=== PATIENT | female | born 1995 | race Caucasian/White ===

== ENCOUNTER 2017-01-31 15:43 | Emergency (ER) | payer OTHER ==
[2017-01-31 15:53] VITALS: BP 116/72; PULSE 112; TEMP 98.5; BMI 30.2
--- NOTE | 2017-01-31 17:50 | PDOC ---
History of Present Illness - General Chief Complaint: Abscess Boil Stated Complaint: ABSCESS ON BACK Time Seen by Provider: 01/31/17 17:01 History Source: Patient Exam Limitations: No Limitations - History of Present Illness Initial Comments: CHIEF COMPLAINT: 21 y/o afebrile female c/o painful abscess to back x 3 weeks. HISTORY OF PRESENT ILLNESS: The patient was seen at [facility] 2 weeks ago and was given Penicillin but states it is not helping. She admits to fever yesterday but none in the ER today. Vital signs on arrival are notable for pulse of 112. REVIEW OF SYSTEMS: GENERAL/CONSTITUTIONAL: Subjective fever. No chills. No weakness. No weight change. MUSCULOSKELETAL: No joint or muscle swelling or pain. No neck or back pain. SKIN: +painful abscess to low back. NEUROLOGIC: No headache, vertigo, loss of consciousness, or loss of sensation. PHYSICAL EXAM: GENERAL: The patient is awake, alert, and fully oriented, in no acute distress. EXTREMITIES: Normal range of motion, no edema. NEUROLOGICAL: Normal speech, normal gait. CN II-XII grossly intact. SKIN: 2cm in diameter, raised, erythematous abscess in middle of lower lumbar region that is non-fluctuant, indurated and very TTP. No streaking. Past History - Past Medical History Allergies/Adverse Reactions: Allergies Allergy/AdvReac Type Severity Reaction Status Date / Time No Known Allergies Allergy Verified 01/31/17 15:50 Home Medications: Ambulatory Orders Sulfamethoxazole/Trimethoprim [Bactrim Ds -] 1 tab PO BID #20 tablet 01/31/17 Asthma: Yes Kidney Stones: Yes - Reproductive History (#): 2 Para: 1 Therapeutic (s) & number: Yes Spontaneous : 0 - Immunization History TDAP Vaccination: Yes Immunization Up to Date: Yes - Psycho/Social/Smoking Cessation Hx Anxiety: No Suicidal Ideation: No Smoking Status: No Smoking History: Never smoked Have you smoked in the past 12 months: No Number of Cigarettes Smoked Daily: 0 Hx Alcohol Use: No Drug/Substance Use Hx: No Substance Use Type: None *Physical Exam - Vital Signs Last Vital Signs Temp Pulse Resp BP Pulse Ox 98.5 F 112 H 18 116/72 98 01/31/17 15:51 01/31/17 15:51 01/31/17 15:51 01/31/17 15:51 01/31/17 15:51 Medical Decision Making - Medical Decision Making A/P: 21 y/o female with an indurated lower back skin abscess. Instructed her to d/c PCN. Will send rx for bactrim. Instructed her to take as prescribed and apply hot compresses hourly. Instructed her to f/u with Dr. Yang if no improvement in 3 days for possible surgical consult. The patient verbalizes understanding of all instructions, has no further questions and is awaiting discharge. *DC/Admit/Observation/Transfer Diagnosis at time of Disposition: Abscess - Prescriptions Prescriptions: Sulfamethoxazole/Trimethoprim [Bactrim Ds -] 1 tab PO BID #20 tablet - Referrals Referrals: Alexander Yang MD [Primary Care Provider] - Call tomorrow - Patient Instructions Printed Discharge Instructions: DI for Skin Abscess Additional Instructions: Discharge Instructions: -Take antibiotics as prescribed; a prescription has been called out to the [facility] -Apply hot compresses hourly to the affected area -Follow up with Dr. Yang if symptoms do not improve for possible surgical referral.
== END 2017-01-31 18:17 | disposition home or self-care (01) ==
LOC: JERFT 15:43 → JER 15:43 → JERFT 18:17
DX: L02.212 Cutaneous abscess of back [any part, except buttock and flank] (principal)
CPT/HCPCS: 99281-25

== ENCOUNTER 2017-06-18 12:17 | Emergency (ER) | payer OTHER ==
[2017-06-18 12:34] VITALS: BP 110/57; PULSE 83; TEMP 98; BMI 30.2
--- NOTE | 2017-06-18 13:27 | PDOC ---
History of Present Illness - General Chief Complaint: Pain, Acute Stated Complaint: VAGINAL BLEEDING Time Seen by Provider: 06/18/17 12:48 - History of Present Illness Initial Comments: 06/18/17 13:45 Ms. Willett is a [id number] 21 yo F with a significant past medical history of seizures, asthma, and kidney stones who presents to the emergency department with RLQ pain for the last 2-3 weeks. She also reports her LMP was May 26 and that she had unprotected sex around this time. She has not started her period and is worried she may be . She further reports a few days of spotting, nausea, and some vomiting. The patient denies chest pain, shortness of breath, headache and dizziness. Denies fever, chills, and constipation. Denies dysuria, frequency, urgency and hematuria. Allergies: NKDA Past surgical history: None Social history: Social EtOH PMD - Dr. Alexander Yang Past History - Past Medical History Allergies/Adverse Reactions: Allergies Allergy/AdvReac Type Severity Reaction Status Date / Time No Known Allergies Allergy Verified 06/18/17 12:31 Home Medications: Ambulatory Orders Sulfamethoxazole/Trimethoprim [Bactrim Ds -] 1 tab PO BID #20 tablet 01/31/17 Asthma: Yes Kidney Stones: Yes Seizures: Yes - Reproductive History (#): 2 Para: 1 Therapeutic (s) & number: Yes Spontaneous : 0 - Immunization History TDAP Vaccination: Yes Immunization Up to Date: Yes - Psycho/Social/Smoking Cessation Hx Anxiety: No Suicidal Ideation: No Smoking Status: No Smoking History: Never smoked Have you smoked in the past 12 months: No Number of Cigarettes Smoked Daily: 0 Hx Alcohol Use: No Drug/Substance Use Hx: No Substance Use Type: None Review of Systems - Review of Systems Comments:: 06/18/17 13:46 GENERAL/CONSTITUTIONAL: No fever or chills. No weakness. HEAD, EYES, EARS, NOSE AND THROAT: No change in vision. No ear pain or discharge. No sore throat. CARDIOVASCULAR: No chest pain or shortness of breath RESPIRATORY: No cough, wheezing, or hemoptysis. GASTROINTESTINAL: +Recent nausea and vomiting in the morning for 3 days, 2-3 weeks of RLQ pain that is described as "pinching." No diarrhea or constipation. GENITOURINARY: +Recent vaginal spotting. No dysuria, frequency, or change in urination. MUSCULOSKELETAL: No joint or muscle swelling or pain. No neck or back pain. SKIN: No rash NEUROLOGIC: No headache, vertigo, loss of consciousness, or change in strength/ sensation. ENDOCRINE: No increased thirst. No abnormal weight change HEMATOLOGIC/LYMPHATIC: No anemia, easy bleeding, or history of blood clots. ALLERGIC/IMMUNOLOGIC: No hives or skin allergy. *Physical Exam - Vital Signs Last Vital Signs Temp Pulse Resp BP Pulse Ox 98 F 83 19 110/57 97 06/18/17 12:31 06/18/17 12:31 06/18/17 12:31 06/18/17 12:31 06/18/17 12:31 - Physical Exam Comments: 06/18/17 13:46 GENERAL: Awake, alert, and fully oriented, in no acute distress HEAD: No signs of trauma, normocephalic, atraumatic EYES: PERRLA, EOMI, sclera anicteric, conjunctiva clear ENT: Auricles normal inspection, hearing grossly normal, nares patent, oropharynx clear without exudates. Moist mucosa NECK: Normal ROM, supple, no lymphadenopathy, JVD, or masses LUNGS: No distress, speaks full sentences, clear to auscultation bilaterally HEART: Regular rate and rhythm, normal S1 and S2, no murmurs, rubs or gallops, peripheral pulses normal and equal bilaterally. ABDOMEN: +Mildly tender across lower abdomen. Soft, normoactive bowel sounds. No guarding, no rebound. No masses EXTREMITIES: Normal inspection, Normal range of motion, no edema. No clubbing or cyanosis. NEUROLOGICAL: Cranial nerves II through XII grossly intact. Normal speech, normal gait, no focal sensorimotor deficits SKIN: Warm, Dry, normal turgor, no rashes or lesions noted. 06/18/17 14:11 ED Treatment Course - LABORATORY CBC & Chemistry Diagram: 06/18/17 14:01 06/18/17 14:01 Medical Decision Making - Medical Decision Making 06/18/17 14:11 Ms. Willett presents worried she may be with a delayed period and recent unprotected sex. Patient reports taking a home test but that it was "blurry." Some concern for ectopic with possible and history of abdominal pain. On further questioning, patient confided to nurse that recent sex was an unknown friend of her girlfriend's that she was trying to get from. Unknown if the man had any STI's. Will test for GC/Chlamydia/HIV. 06/18/17 14:28 Upreg negative, patient now unconcerned about abdominal pain. Would like to leave once results of HIV testing are known. Will advise to f/u on GC/Chlamydia later this week and return if any increase in pain or fever. 06/18/17 14:41 Patient eloped. *DC/Admit/Observation/Transfer Diagnosis at time of Disposition: Abdominal pain Qualifiers: Abdominal location: lower abdomen, unspecified Qualified Code(s): R10.30 - Lower abdominal pain, unspecified - Discharge Dispostion Disposition: ELOPED - Attestations Physician Attestion: 06/18/17 14:42 I, Dr. Jairon Pyle, attest that this document has been prepared under my direction and personally reviewed by me in its entirety. I further attest, that it accurately reflects all work, treatment, procedures and medical decision -making performed by me.
[2017-06-18 14:06] LABS: BASOPHIL 0.5 % (0-2.0); EOSINOPHIL 0.9 % (0-4.5); MCHC 33.5 g/dl (32.0-36.0); MEAN CELL VOLUME 98.4 fl (80-96); MEAN PLT VOLUME 8.6 fl (7.5-11.1); NEUTROPHILS 64.2 % (42.8-82.8); PLATELET COUNT 226 K/MM3 (134-434); RDW 12.3 % (11.6-15.6); WHITE BLOOD COUNT 4.9 K/mm3 (4.0-10.0)
[2017-06-18 14:10] LABS: URINE APPEARANCE SLCLOUDY; URINE BILIRUBIN NEGATIVE (NEGATIVE); URINE BLOOD NEGATIVE (NEGATIVE); URINE COLOR LTYELLOW; URINE GLUCOSE (UA) NEGATIVE (NEGATIVE); URINE KETONE NEGATIVE (NEGATIVE); URINE LEUK ESTERASE TRACE (NEGATIVE); URINE NITRITE NEGATIVE (NEGATIVE); URINE PROTEIN NEGATIVE (NEGATIVE); URINE UROBILINOGEN NEGATIVE mg/dL (0.2-1.0)
[2017-06-18 14:15] LABS: URINE BACTERIA RARE /hpf (NONE SEEN); URINE MUCUS FEW; URINE RBC 1 /hpf (0-3); URINE WBC 4 /hpf (3-5)
--- NOTE | 2017-06-18 14:22 | PDOC ---
Attending Attestation - Resident Resident Name: Jairon Pyle - ED Attending Attestation I have performed the following: I have examined & evaluated the patient, The case was reviewed & discussed with the resident, I agree w/resident's findings & plan, Exceptions are as noted - HPI HPI: pt is a 21y F hx of sz, asthma, kidney stones presents with a few weeks of lower abd pain, associated with spotting and some nausea. also notes that she had unprotected sex and is worried she may be . no associated f/c, diarrhea, dysuria. pts exam unremarkable without any focal tendrness and she is generally well appearing vitals normal pt left prior to completion of elaluation - Physicial Exam PE: 06/23/17 00:34 see above - Medical Decision Making 06/23/17 00:34 see above
[2017-06-18 14:32] LABS: ANION GAP 7 (8-16); CALCIUM 9.1 mg/dL (8.5-10.1); CO2 27 mmol/L (21-32); CREATININE 0.6 mg/dL (0.55-1.02); GLUCOSE,RANDOM 101 mg/dL (74-106); SGOT/AST 21 U/L (15-37); SGPT/ALT 32 U/L (12-78)
[2017-06-18 14:34] LABS: ALK PHOS 73 U/L (45-117); BILIRUBIN,TOTAL 0.5 mg/dL (0.2-1.0); TOT PROT 7.3 g/dl (6.4-8.2)
[2017-06-19 13:26] LABS: HIV 1 & 2 AB NEGATIVE; HIV 1 AGp24 NEGATIVE
== END 2017-06-18 15:00 | disposition left against medical advice (07) ==
LOC: JER 12:17
DX: R10.31 Right lower quadrant pain (principal); G40.909 Epilepsy, unspecified, not intractable, without status epilepticus; J45.909 Unspecified asthma, uncomplicated; Z87.442 Personal history of urinary calculi
CPT/HCPCS: 36415; 80053; 81003; 81015; 84703; 85025; 87389; 87491; 87591; 99283-25

== ENCOUNTER 2018-01-31 09:12 | Emergency (ER) | payer OTHER ==
[2018-01-31 09:16] VITALS: BP 117/54; PULSE 99; TEMP 98; BMI 60.5
[2018-01-31 10:01] LABS: HCG,QUALITATIVE URINE NEGATIVE; URINE APPEARANCE SLCLOUDY; URINE BILIRUBIN NEGATIVE (NEGATIVE); URINE BLOOD NEGATIVE (NEGATIVE); URINE COLOR YELLOW; URINE GLUCOSE (UA) NEGATIVE (NEGATIVE); URINE KETONE NEGATIVE (NEGATIVE); URINE NITRITE NEGATIVE (NEGATIVE); URINE PROTEIN NEGATIVE (NEGATIVE); URINE UROBILINOGEN 4.0 E.U/dl mg/dL (0.2-1.0)
[2018-01-31 10:12] LABS: URINE LEUK ESTERASE 1+ (NEGATIVE)
[2018-01-31 10:14] LABS: EPI CELLS MODERATE /HPF (FEW); URINE MUCUS RARE
[2018-01-31] MEDS ORDERED: CYCLOBENZAPRINE HCL 10 MG TABLET (FP) PO ONE (11:12)
[2018-01-31] MEDS ORDERED: AZITHROMYCIN 1 GM PACKET PO ONE (11:12)
[2018-01-31] MEDS ORDERED: AZITHROMYCIN 500 MG TABLET PO ONE (11:13)
[2018-01-31] MEDS ORDERED: AZITHROMYCIN 250 MG TABLET ONE (11:14)
[2018-01-31] MEDS ORDERED: CYCLOBENZAPRINE HCL 10 MG TABLET (FP) ONE (11:19)
--- NOTE | 2018-01-31 12:22 | PDOC ---
History of Present Illness - General Chief Complaint: Urinary Problem Stated Complaint: UTI Time Seen by Provider: 01/31/18 10:40 History Source: Patient Exam Limitations: No Limitations - History of Present Illness Initial Comments: 01/31/18 12:16 Patient is a 22-year-old female who presents with lower back pain , feels a bump in the lower back, also has vaginal discharge. Has been having unprotected sex. Denies any urinary frequency, pain or hematuria. Has history of the same back pain was seen at [facility] emergency room told it was musculoskeletal and given Toradol, patient had a reaction to the Toradol causing hives. Has been taking Motrin at home with minimal result. Past Medical History: [Denies]. Allergies: No known allergies Medications: None Family History: Non-contributory Social History: Denies smoking, alcohol use, or IVDU Review of Systems GENERAL/CONSTITUTIONAL: [No fever or chills. No weakness. No weight change.] HEAD, EYES, EARS, NOSE AND THROAT: [No change in vision. No ear pain or discharge. No sore throat. ] CARDIOVASCULAR: [No chest pain or shortness of breath.] RESPIRATORY: [No cough, wheezing, or hemoptysis.] GASTROINTESTINAL: [No nausea, vomiting, diarrhea or constipation. No rectal bleeding.] GENITOURINARY: [No dysuria, frequency, or change in urination. Vaginal discharge.] MUSCULOSKELETAL: [No joint or muscle swelling or pain. No neck pain generalized lower back pain.] SKIN AND BREASTS: [No rash or easy bruising.] NEUROLOGIC: [No headache, vertigo, loss of consciousness, or loss of sensation.] PSYCHIATRIC: [No depression or anxiety.] ENDOCRINE: [No increased thirst. No abnormal weight change.] HEMATOLOGIC/LYMPHATIC: [No anemia, easy bleeding, or history of blood clots.] ALLERGIC/IMMUNOLOGIC: [No hives or skin allergy. No latex allergy.] Physical Exam: GENERAL: [The patient is awake, alert, and fully oriented, in no acute distress. ] EYES: [Pupils equal, round and reactive to light, extraocular movements intact, sclera anicteric, conjunctiva clear.] ENT: [Ears normal, nares patent, oropharynx clear without exudates. Moist mucous membranes. No uvula deviation] NECK: [Normal range of motion, supple without lymphadenopathy, JVD, or masses.] LUNGS: [Breath sounds equal, clear to auscultation bilaterally. No wheezes, and no crackles.] GENITALIA: Cervical os is closed, thick clear discharge. HEART: [Regular rate and rhythm, normal S1 and S2 without murmur, rub or gallop. ] ABDOMEN: [Soft, nontender, normoactive bowel sounds. No guarding, no rebound. No masses. No bruising or abrasions] MUSCULOSKELETAL: [Normal range of motion, no edema. No clubbing or cyanosis. No cords, erythema, or tenderness. No CVA Tenderness with fist palpation, no spinal point tenderness.] NEUROLOGICAL: [Cranial nerves II through XII grossly intact. Normal speech, normal gait.] SKIN: [Warm, Dry, normal turgor, no rashes or lesions noted.] Past History - Past Medical History Allergies/Adverse Reactions: Allergies Allergy/AdvReac Type Severity Reaction Status Date / Time No Known Allergies Allergy Verified 01/31/18 09:17 Home Medications: Ambulatory Orders NK [No Known Home Medication] 06/18/17 Asthma: Yes COPD: No Kidney Stones: Yes Seizures: Yes - Reproductive History (#): 3 Para: 1 Therapeutic (s) & number: Yes Spontaneous : 2 - Immunization History TDAP Vaccination: Yes Immunization Up to Date: Yes - Suicide/Smoking/Psychosocial Hx Smoking Status: No Smoking History: Never smoked Have you smoked in the past 12 months: No Number of Cigarettes Smoked Daily: 0 Information on smoking cessation initiated: No Hx Alcohol Use: No Drug/Substance Use Hx: No Substance Use Type: None *Physical Exam - Vital Signs Last Vital Signs Temp Pulse Resp BP Pulse Ox 98 F 99 H 18 117/54 100 01/31/18 09:14 01/31/18 09:14 01/31/18 09:14 01/31/18 09:14 01/31/18 09:14 ED Treatment Course - ADDITIONAL ORDERS Additional order review: Laboratory Results 01/31/18 09:35 Urine Color Yellow Urine Appearance Slcloudy Urine pH 6.0 Ur Specific [place] 1.026 Urine Protein Negative Urine Glucose (UA) Negative Urine Ketones Negative Urine Blood Negative Urine Nitrite Negative Urine Bilirubin Negative Urine Urobilinogen 4.0 e.u/dl H Ur Leukocyte Esterase 1+ H Urine WBC (Auto) 2 Urine RBC (Auto) 3 Ur Epithelial Cells Moderate Urine Mucus Rare Urine HCG, Qual Negative - Medications Given in the ED: ED Medications Discontinued Medications Generic Name Dose Route Start Last Admin Trade Name Jenn PRN Reason Stop Dose Admin Azithromycin 1 gm 01/31/18 11:12 01/31/18 11:20 Zithromax - PO 01/31/18 11:13 Not Given ONCE ONE Azithromycin 1,000 mg 01/31/18 11:13 01/31/18 11:19 Azithromycin PO 01/31/18 11:14 1,000 mg ONCE ONE Administration Ceftriaxone Sodium 250 mg 01/31/18 11:11 01/31/18 11:18 Rocephin - IM 01/31/18 11:12 250 mg ONCE ONE Administration Cyclobenzaprine HCl 10 mg 01/31/18 11:12 01/31/18 11:20 Flexeril - PO 01/31/18 11:13 10 mg ONCE ONE Administration Medical Decision Making - Medical Decision Making 01/31/18 12:22 A/P: patient with 2 different complaints, one with vaginal discharge, no urinary pain or pressure. Patient also with back pain, history of same. Has been having unprotected sex. Also with lower back pain which is chronic in nature. Patient is unable to have Toradol because of allergy however has been taking Motrin with minimal resolve of symptoms. Patient with back spasm, will give Flexeril. Patient also with vaginal discharge, urinalysis with WBCs more suspicious for STD versus UTI will give ceftriaxone and azithromycin, and has been having unprotected sex with no protection. Laboratory Results - last 24 hr 01/31/18 09:35 Urine Color Yellow Urine Appearance Slcloudy Urine pH 6.0 Ur Specific [place] 1.026 Urine Protein Negative Urine Glucose (UA) Negative Urine Ketones Negative Urine Blood Negative Urine Nitrite Negative Urine Bilirubin Negative Urine Urobilinogen 4.0 e.u/dl H Ur Leukocyte Esterase 1+ H Urine WBC (Auto) 2 Urine RBC (Auto) 3 Ur Epithelial Cells Moderate Urine Mucus Rare Urine HCG, Qual Negative I will discharge patient home with Motrin as needed for back pain, follow-up for back pain. Also follow-up with [facility] if vaginal discharge persist. Call in one week for results of GC chlamydia testing. *DC/Admit/Observation/Transfer Diagnosis at time of Disposition: Vaginal discharge Back pain Qualifiers: Back pain location: low back pain Chronicity: chronic Back pain laterality: bilateral Sciatica presence: without sciatica Qualified Code(s): M54.5 - Low back pain; G89.29 - Other chronic pain; G89.29 - Other chronic pain - Discharge Dispostion Disposition: HOME Condition at time of disposition: Stable Admit: No - Referrals Referrals: Wilbert Yang MD [Primary Care Provider] - - Patient Instructions Additional Instructions: Recommend follow-up with [facility] if vaginal discharge persist. Recommend follow- up with her primary care doctor for chronic back pain. May take Motrin as needed for pain. Please call 1 week for results of GC chlamydia testing at Refrain from sexual intercourse until all symptoms are resolved.. - Post Discharge Activity Forms/Work/School Notes: Back to Work
== END 2018-01-31 12:31 | disposition home or self-care (01) ==
LOC: JERFT 09:12
DX: N89.8 Other specified noninflammatory disorders of vagina (principal); M54.5 Low back pain; G89.29 Other chronic pain
CPT/HCPCS: 36415; 81003; 81015; 84703; 87086; 87491; 87591; 99281-25

== ENCOUNTER 2018-09-13 23:08 | Emergency (ER) | payer OTHER ==
[2018-09-13 23:13] VITALS: BMI 28.3
--- NOTE | 2018-09-13 23:20 | PDOC ---
History of Present Illness - General Chief Complaint: Back Pain Stated Complaint: PAIN, ACUTE Time Seen by Provider: 09/13/18 23:19 - History of Present Illness Initial Comments: 09/13/18 23:33 Ms. Willett is a 22 yo female w/ pmh of seizures, asthma, and kidney stones who presents for evaluation of 1 day history of fever and left sided lower back pain with coinciding LLQ abdominal pain. Patient reports she has also been urinating brown color as of today as well. Patient describes pain as intermittent and similar to her previous kidney stones. The patient denies chest pain, shortness of breath, headache and dizziness. Denies chills, nausea, vomit, diarrhea and constipation. Denies dysuria, frequency, and urgency. Allergies: NKDA Past History - Past Medical History Allergies/Adverse Reactions: Allergies Allergy/AdvReac Type Severity Reaction Status Date / Time No Known Allergies Allergy Verified 01/31/18 09:17 Home Medications: Ambulatory Orders Cephalexin [Keflex] 500 mg PO TID #42 capsule 09/14/18 Asthma: Yes COPD: No Kidney Stones: Yes Seizures: Yes - Surgical History Appendectomy: No Gastric Stapling: No - Reproductive History (#): 3 Para: 1 Therapeutic (s) & number: Yes Spontaneous : 2 - Immunization History TDAP Vaccination: Yes Immunization Up to Date: Yes - Suicide/Smoking/Psychosocial Hx Smoking Status: No Smoking History: Never smoked Have you smoked in the past 12 months: No Number of Cigarettes Smoked Daily: 0 Hx Alcohol Use: No Drug/Substance Use Hx: No Substance Use Type: None Review of Systems - Review of Systems Comments:: 09/14/18 02:27 GENERAL/CONSTITUTIONAL: +Fever yesterday. No weakness. HEAD, EYES, EARS, NOSE AND THROAT: No change in vision. No ear pain or discharge. No sore throat. CARDIOVASCULAR: No chest pain or shortness of breath RESPIRATORY: No cough, wheezing, or hemoptysis. GASTROINTESTINAL: +Back and LLQ abdominal pain as described. No nausea, vomiting , diarrhea or constipation. GENITOURINARY: +1 day of brown urine. No dysuria or frequency. MUSCULOSKELETAL: No joint or muscle swelling or pain. No neck pain. SKIN: No rash NEUROLOGIC: No headache, vertigo, loss of consciousness, or change in strength/ sensation. ENDOCRINE: No increased thirst. No abnormal weight change HEMATOLOGIC/LYMPHATIC: No anemia, easy bleeding, or history of blood clots. ALLERGIC/IMMUNOLOGIC: No hives or skin allergy. *Physical Exam - Vital Signs Last Vital Signs Temp Pulse Resp BP Pulse Ox 98.6 F 84 20 115/66 100 09/13/18 23:09 09/13/18 23:09 09/13/18 23:09 09/13/18 23:09 09/13/18 23:09 - Physical Exam Comments: 09/14/18 02:29 GENERAL: Awake, alert, and fully oriented, in no acute distress HEAD: No signs of trauma, normocephalic, atraumatic EYES: PERRLA, EOMI, sclera anicteric, conjunctiva clear ENT: Auricles normal inspection, hearing grossly normal, nares patent, oropharynx clear without exudates. Moist mucosa NECK: Normal ROM, supple, no lymphadenopathy, JVD, or masses LUNGS: No distress, speaks full sentences, clear to auscultation bilaterally HEART: Regular rate and rhythm, normal S1 and S2, no murmurs, rubs or gallops, peripheral pulses normal and equal bilaterally. ABDOMEN: +Left CVA tenderness. Minimal LLQ TTP. Normoactive bowel sounds. No guarding, no rebound. No masses EXTREMITIES: Normal inspection, Normal range of motion, no edema. No clubbing or cyanosis. NEUROLOGICAL: Cranial nerves II through XII grossly intact. Normal speech, normal gait, no focal sensorimotor deficits SKIN: Warm, Dry, normal turgor, no rashes or lesions noted. ED Treatment Course - LABORATORY CBC & Chemistry Diagram: 09/14/18 00:20 09/14/18 00:20 Medical Decision Making - Medical Decision Making 09/14/18 00:46 Ms. Willett is a 22 yo female w/ pmh as described who presents for evaluation of lower back pain concerning for pyelonephritis vs. ureterolithiasis. According workup started w/ urine analysis, labs, and US. 09/14/18 02:31 No acute findings on renal US. Labs/urine as below significant for UTI. Will treat for pyelonephritis with 1gm rocephin IV and home Rx for keflex and DC for further outpatient evaluation. Discharging to home. Laboratory Results - last 24 hr 11/01/18 11/01/18 11/01/18 00:05 00:20 00:20 WBC 5.6 RBC 4.08 Hgb 13.0 Hct 40.0 MCV 98.1 H MCH 31.9 MCHC 32.5 RDW 12.7 Plt Count 274 D MPV 9.0 Absolute Neuts (auto) 3.4 Neutrophils % 60.8 Lymphocytes % 29.2 Monocytes % 9.1 Eosinophils % 0.2 Basophils % 0.7 Nucleated RBC % 0 Sodium 140 Potassium 4.2 Chloride 104 Carbon Dioxide 30 Anion Gap 6 L BUN 12 Creatinine 0.8 Creat Clearance w eGFR > 60 Random Glucose 88 Calcium 9.2 Total Bilirubin 0.3 AST 20 ALT 18 Alkaline Phosphatase 86 Total Protein 7.7 Albumin 4.1 Urine Color Dkyellow Urine Appearance Slcloudy Urine pH 6.0 Ur Specific [place] 1.031 Urine Protein 1+ H Urine Glucose (UA) Negative Urine Ketones Trace H Urine Blood Negative Urine Nitrite Negative Urine Bilirubin Negative Urine Urobilinogen 4.0 e.u/dl H Ur Leukocyte Esterase Trace Urine WBC (Auto) 27 Urine RBC (Auto) 13 Ur Epithelial Cells Many Urine Mucus Many Urine HCG, Qual Negative *DC/Admit/Observation/Transfer Diagnosis at time of Disposition: Pyelonephritis - Discharge Dispostion Disposition: HOME - Prescriptions Prescriptions: Cephalexin [Keflex] 500 mg PO TID #42 capsule - Referrals Referrals: Alexander Yang MD [Primary Care Provider] - - Patient Instructions Printed Discharge Instructions: DI for Kidney Infection Additional Instructions: You were evaluated today in the Emergency Room for your pain. After evaluation we determined that you currently have a kidney infection. We started antibiotics in the ER and sent a prescription to your pharmacy. Please take all medications as proscribed and follow-up with primary care provider later this week for further evaluation. Return to ER if any further pain not controllable with over the counter medication, fever, chills, or other concerning symptoms. - Post Discharge Activity
[2018-09-13] MEDS ORDERED: SODIUM CHLORIDE 1,000 ML IV STA (23:30)
[2018-09-13] MEDS ORDERED: ACETAMINOPHEN 500 MG TABLET (FP) PO ONE (23:31)
--- NOTE | 2018-09-13 23:52 | PDOC ---
Attending Attestation - Resident Resident Name: Jairon Pyle - ED Attending Attestation I have performed the following: I have examined & evaluated the patient, The case was reviewed & discussed with the resident, I agree w/resident's findings & plan - HPI HPI: 09/14/18 01:25 Brennon 22 yo female w/ pmh of seizures, asthma, and kidney stones who presents for evaluation of 1 day history of fever and left sided back and flank pain, + urinary sx. LMP 2 weeks ago. - Physicial Exam PE: 09/14/18 01:23 NAD, well appearing, PERRL, EOMI, MMM, nl conjunctiva, anicteric; neck supple. lungs clear, RRR, abdomen soft +left flank tenderness, +CVAT. MARTÍNEZ x4, no focal neuro deficits. No peripheral edema. normal color for ethnicity, WWP. - Medical Decision Making 09/14/18 01:24 Brennon 22 yo female w/ pmh of seizures, asthma, and kidney stones who presents for evaluation of 1 day history of fever and left sided back and flank pain, + urinary sx. LMP 2 weeks ago. DDx. renal colic, ureterolithiasis, pyelonephritis, UTI, infection. pancreatitis. Vital signs reviewed, wnl. no fever here. Prior notes reviewed, including admissions, discharges and consultations. laboratory results and imaging reviewed, basic labs and lytes wnl, notable for normal LFTs and lipase. UA_leuk esterase and WBCs, urobilinogen present; no blood ED course: no acute events, nontoxic and remained stable and well appearing. Clinically improved after interventions, including analgesia and IVF. Renal sono to r/o hydronephrosis vs pyelonephritis vs infected renal/ureteral stone as etiology for sx. normal renal sono with good flow, no hydro. f/u urine cultures will empirically treat as uncomplicated pyelonephritis, nontoxic appearing and pain controlled. ceftriaxone x 1 dose, Keflex TID x 14 day course. Dispo: Pt to be discharged in stable condition. Patient made aware of impression and plan, return precautions discussed (including but not limited to worsening pain or symptoms), fevers, or signs of infection, chest pain, respiratory distress, inability to tolerate oral intake, dehydration, syncope, or neurologic changes). Follow up with PMD and/or specialist as recommended, follow up information provided, take medications as instructed for duration of time. continue with supportive care, avoid triggers and precipitants. All questions answered to patient's satisfaction and expressed understanding and comfort with this. 09/14/18 01:26 09/14/18 02:48
[2018-09-14] MEDS ORDERED: ACETAMINOPHEN 325 MG TABLET (FP) ONE (00:02)
[2018-09-14 00:25] LABS: URINE APPEARANCE SLCLOUDY; URINE BILIRUBIN NEGATIVE (<2.0 mg/dL); URINE COLOR DKYELLOW; URINE GLUCOSE (UA) NEGATIVE (NEGATIVE); URINE KETONE TRACE (NEGATIVE); URINE LEUK ESTERASE TRACE (NEGATIVE); URINE NITRITE NEGATIVE (NEGATIVE); URINE PROTEIN 1+ (NEGATIVE); URINE UROBILINOGEN 4.0 E.U/dl mg/dL (0.2-1.0)
[2018-09-14 00:26] LABS: HCG,QUALITATIVE URINE Negative
[2018-09-14] MEDS ORDERED: morphine CARPU-JECT 4 MG/1 ML DISP.SYRIN IVPUSH ONE (00:29)
[2018-09-14 00:38] LABS: BASO % 0.7 % (0-2.0); EOS % 0.2 % (0-4.5); LYMPH % 29.2 % (8-40); MCH 31.9 pg (25.7-33.7); MCHC 32.5 g/dl (32.0-36.0); MEAN CELL VOLUME 98.1 fl (80-96); MONO % 9.1 % (3.8-10.2); NEUT % 60.8 % (42.8-82.8); PLATELET COUNT 274 K/MM3 (134-434); RBC 4.08 M/mm3 (3.60-5.2); RDW 12.7 % (11.6-15.6); WHITE BLOOD COUNT 5.6 K/mm3 (4.0-10.0)
[2018-09-14 00:39] LABS: EPI CELLS MANY /HPF (FEW); URINE MUCUS MANY
[2018-09-14] MEDS ORDERED: morphine SULFATE 4 MG/ML VIAL ONE (00:52)
[2018-09-14 01:05] LABS: ALBUMIN 4.1 g/dl (3.4-5.0); ALK PHOS 86 U/L (45-117); ANION GAP 6 MMOL/L (8-16); BILIRUBIN,TOTAL 0.3 mg/dL (0.2-1); BLOOD UREA NITROGEN 12 mg/dL (7-18); CALCIUM 9.2 mg/dL (8.5-10.1); CHLORIDE 104 mmol/L (98-107); CO2 30 mmol/L (21-32); CREATININE 0.8 mg/dL (0.55-1.3); GLUCOSE,RANDOM 88 mg/dL (74-106); POTASSIUM 4.2 mmol/L (3.5-5.1); SGOT/AST 20 U/L (15-37); SGPT/ALT 18 U/L (13-61); SODIUM 140 mmol/L (136-145); TOT PROT 7.7 g/dl (6.4-8.2)
[2018-09-14] MEDS ORDERED: CEFTRIAXONE 1,000 MG in DEXTROSE 5%-WATER - 50 ML IVPB ONE (01:49)
[2018-09-14] MEDS ORDERED: CEFTRIAXONE 1 GM/50 ML BAG ONE (02:52)
[2018-09-14 03:48] VITALS: BP 122/71; PULSE 88; TEMP 98
== END 2018-09-14 03:48 | disposition home or self-care (01) ==
LOC: JER 23:08
PROC: 3E0337Z Introduction of Electrolytic and Water Balance Substance into Peripheral Vein, Percutaneous Approach (ICD-10-PCS; principal; 2018-09-13)
PROC: 3E03329 Introduction of Other Anti-infective into Peripheral Vein, Percutaneous Approach (ICD-10-PCS; 2018-09-13)
PROC: 3E033NZ Introduction of Analgesics, Hypnotics, Sedatives into Peripheral Vein, Percutaneous Approach (ICD-10-PCS; 2018-09-13)
DX: N12 Tubulo-interstitial nephritis, not specified as acute or chronic (principal); Z87.09 Personal history of other diseases of the respiratory system; Z86.69 Personal history of other diseases of the nervous system and sense organs; Z87.440 Personal history of urinary (tract) infections
CPT/HCPCS: 36415; 76775-TC; 80053; 81003; 81015; 84703; 85025; 87086; 99283-25; J7030

== ENCOUNTER 2018-10-01 03:33 | Emergency (ER) | payer OTHER ==
[2018-10-01 03:57] VITALS: BP 109/73; PULSE 98; TEMP 98.2; BMI 29.2
[2018-10-01] MEDS ORDERED: SODIUM CHLORIDE 1,000 ML IV STA (03:58)
[2018-10-01] MEDS ORDERED: ACETAMINOPHEN 1000 MG/100 ML VIAL (NON FORMULARY) IVPB ONE (03:58)
--- NOTE | 2018-10-01 04:16 | PDOC ---
History of Present Illness - General Chief Complaint: Back Pain Stated Complaint: LOWER BACK PAIN Time Seen by Provider: 10/01/18 03:42 History Source: Patient Exam Limitations: No Limitations - History of Present Illness Initial Comments: 22 y/o F hx of seizures, asthma, kidney stones presents with L flank pain radiating down groin x 4 days. Also mentions she may have had fever of 101 two days ago, but not sure of exact number. Has been using Tylenol at home without much relief. Also mentions having mild dysuria. States she think she may have passed a stone today as well. Patient was recently seen on 09/13 for similar complaints, but patient states this pain is worse than before. At that visit, she was discharged on Keflex (UCx from that visit was contaminated). Denies sob , cp, n/v/d, hematuria, vaginal bleeding, vaginal discharge. LNMP was 1 month ago 10/01/18 04:10 Past History - Past Medical History Allergies/Adverse Reactions: Allergies Allergy/AdvReac Type Severity Reaction Status Date / Time No Known Allergies Allergy Verified 01/31/18 09:17 Home Medications: Ambulatory Orders Cyclobenzaprine HCl [Flexeril 10 mg] 10 mg PO TID PRN #9 tablet 10/01/18 Ibuprofen [Motrin -] 600 mg PO QID #28 tablet 10/01/18 Asthma: Yes CVA: No COPD: No Kidney Stones: Yes Seizures: Yes - Surgical History Appendectomy: No Gastric Stapling: No - Reproductive History (#): 3 Para: 1 Therapeutic (s) & number: Yes Spontaneous : 2 - Immunization History TDAP Vaccination: Yes Immunization Up to Date: Yes - Suicide/Smoking/Psychosocial Hx Smoking Status: No Smoking History: Unknown if ever smoked Have you smoked in the past 12 months: No Number of Cigarettes Smoked Daily: 0 Hx Alcohol Use: No Drug/Substance Use Hx: No Substance Use Type: None Review of Systems - Review of Systems Comments:: See HPI 10/01/18 04:16 *Physical Exam - Vital Signs Last Vital Signs Temp Pulse Resp BP Pulse Ox 98.2 F 98 H 19 109/73 100 10/01/18 03:40 10/01/18 03:40 10/01/18 03:40 10/01/18 03:40 10/01/18 03:40 - Physical Exam General Appearance: No: Apparent Distress Respiratory/Chest: positive: Lungs Clear, Normal Breath Sounds. negative: Respiratory Distress, Accessory Muscle Use Cardiovascular: positive: Regular Rhythm, Regular Rate, S1, S2 Gastrointestinal/Abdominal: positive: Normal Bowel Sounds, Soft. negative: Tender, Distended, Guarding, Rebound, Tenderness Musculoskeletal: positive: CVA Tenderness (L). negative: Muscle Spasm, Vertebral Tenderness Integumentary: positive: Normal Color Neurologic: positive: Fully Oriented, Alert, Normal Mood/Affect ED Treatment Course - LABORATORY CBC & Chemistry Diagram: 10/01/18 04:18 10/01/18 04:18 Medical Decision Making - Medical Decision Making 22 y/o F hx of seizures, asthma, kidney stones presents with L flank pain radiating down groin x 4 days. DDx: Pyelonephritis, kidney stones, UTI; unlikely pancreatitis, cholecystitis Plan: CBC, CMP, UCG, UA, UCx, Tylenol, IVF If urine shows hematuria, will get CT abd/pelvis to r/o kidney stones. 10/01/18 04:17 Labs reviewed and unremarkable UA negative for infection; patient with 1+ blood in urine, 2 RBCs D/W Dr. Maldonado, who recommends getting CT abd/pelvis given second visit for similar complaint Currently patient endorses some improvement in pain Pending to get CT A/P done Will sign out to incoming TRISHA 10/01/18 06:45 *DC/Admit/Observation/Transfer Diagnosis at time of Disposition: Lower back pain - Discharge Dispostion Disposition: HOME Condition at time of disposition: Improved - Prescriptions Prescriptions: Cyclobenzaprine HCl [Flexeril 10 mg] 10 mg PO TID PRN #9 tablet PRN Reason: Back Pain Ibuprofen [Motrin -] 600 mg PO QID #28 tablet - Referrals Referrals: Wilbert Yang MD [Primary Care Provider] - - Patient Instructions Printed Discharge Instructions: Low Back Pain Additional Instructions: You labs were normal and your Ct scan did not reveal any kidney stones The cause of your back pain might be muscular We sent motrin and a muscle relaxant to your pharmacy. Pleas take medications as directed Follow up with your PMD - Post Discharge Activity
[2018-10-01] MEDS ORDERED: ACETAMINOPHEN INJECTION 100 ML IVPB ONE (04:19)
[2018-10-01 04:25] LABS: BASO % 0.5 % (0-2.0); EOS % 0.9 % (0-4.5); HEMATOCRIT 38.1 % (32.4-45.2); HEMOGLOBIN 12.7 GM/dL (10.7-15.3); LYMPH % 25.6 % (8-40); MCH 32.9 pg (25.7-33.7); MCHC 33.3 g/dl (32.0-36.0); MEAN CELL VOLUME 98.8 fl (80-96); MEAN PLT VOLUME 8.7 fl (7.5-11.1); MONO % 8.1 % (3.8-10.2); NEUT % 64.9 % (42.8-82.8); PLATELET COUNT 259 K/MM3 (134-434); RBC 3.86 M/mm3 (3.60-5.2); RDW 12.6 % (11.6-15.6); URINE APPEARANCE CLOUDY; URINE BILIRUBIN NEGATIVE (<2.0 mg/dL); URINE COLOR LTYELLOW; URINE GLUCOSE (UA) NEGATIVE (NEGATIVE); URINE KETONE TRACE (NEGATIVE); URINE LEUK ESTERASE TRACE (NEGATIVE); URINE NITRITE NEGATIVE (NEGATIVE); URINE PROTEIN NEGATIVE (NEGATIVE); URINE UROBILINOGEN 4.0 E.U/dl mg/dL (0.2-1.0); WHITE BLOOD COUNT 7.1 K/mm3 (4.0-10.0)
[2018-10-01 04:35] LABS: EPI CELLS RARE /HPF (FEW); URINE BACTERIA RARE /hpf (NONE SEEN); URINE MUCUS RARE
[2018-10-01 04:47] LABS: ALBUMIN 3.9 g/dl (3.4-5.0); ALK PHOS 82 U/L (45-117); ANION GAP 6 MMOL/L (8-16); BILIRUBIN,TOTAL 0.2 mg/dL (0.2-1); BLOOD UREA NITROGEN 9 mg/dL (7-18); CALCIUM 8.8 mg/dL (8.5-10.1); CHLORIDE 102 mmol/L (98-107); CO2 29 mmol/L (21-32); CREATININE 0.7 mg/dL (0.55-1.3); GLUCOSE,RANDOM 81 mg/dL (74-106); POTASSIUM 4.2 mmol/L (3.5-5.1); SGOT/AST 23 U/L (15-37); SGPT/ALT 17 U/L (13-61); SODIUM 137 mmol/L (136-145); TOT PROT 7.4 g/dl (6.4-8.2)
[2018-10-01] MEDS ORDERED: traMADol HCL 50 MG TABLET PO ONE (07:53)
[2018-10-01] MEDS ORDERED: traMADol HCL 50 MG TABLET ONE (07:59)
--- NOTE | 2018-10-01 08:14 | PDOC ---
*Physical Exam - Vital Signs Last Vital Signs Temp Pulse Resp BP Pulse Ox 98.2 F 98 H 19 109/73 100 10/01/18 03:40 10/01/18 03:40 10/01/18 03:40 10/01/18 03:40 10/01/18 03:40 ED Treatment Course - LABORATORY CBC & Chemistry Diagram: 10/01/18 04:18 10/01/18 04:18 - ADDITIONAL ORDERS Additional order review: Laboratory Results 10/01/18 10/01/18 10/01/18 04:18 04:18 04:18 Sodium 137 Potassium 4.2 Chloride 102 Carbon Dioxide 29 Anion Gap 6 L BUN 9 Creatinine 0.7 Creat Clearance w eGFR > 60 Random Glucose 81 Calcium 8.8 Total Bilirubin 0.2 AST 23 ALT 17 Alkaline Phosphatase 82 Total Protein 7.4 Albumin 3.9 Urine Color Ltyellow Urine Appearance Cloudy Urine pH 7.0 Ur Specific [place] 1.019 Urine Protein Negative Urine Glucose (UA) Negative Urine Ketones Trace H Urine Blood 1+ H Urine Nitrite Negative Urine Bilirubin Negative Urine Urobilinogen 4.0 e.u/dl H Ur Leukocyte Esterase Trace Urine WBC (Auto) 4 Urine RBC (Auto) 2 Ur Epithelial Cells Rare Urine Bacteria Rare Urine Mucus Rare Urine HCG, Qual Negative 10/01/18 04:18 RBC 3.86 MCV 98.8 H MCHC 33.3 RDW 12.6 MPV 8.7 Neutrophils % 64.9 Lymphocytes % 25.6 Monocytes % 8.1 Eosinophils % 0.9 D Basophils % 0.5 - Medications Given in the ED: ED Medications Discontinued Medications Generic Name Dose Route Start Last Admin Trade Name Jenn PRN Reason Stop Dose Admin Acetaminophen 1,000 mg 10/01/18 03:58 10/01/18 04:24 Ofirmev Injection - IVPB 10/01/18 03:59 1,000 mg ONCE ONE Administration Sodium Chloride 1,000 mls @ 1,000 mls/hr 10/01/18 03:58 10/01/18 04:24 Normal Saline - IV 10/01/18 04:57 1,000 mls/hr ASDIR STA Administration Medical Decision Making - Medical Decision Making 10/01/18 07:55 Signed out to me at 7am 22 yo F, renal stones, p/w L flank pain radiating to groin. Also mention that she might have have had a fever, though did not check temperature. Also complaining of possible dysuria. Patient states that she states she had similar symptoms 08/2018 and was dx w/ possible pyelo. Was tx w/ keflex. Ucx read as contamination. No hematuria, vag discharge or change in BM. On reassessment now, pt well stu in NAD and states her pain did somewhat improve w / tylenol. Does have some ttp to L lower back, no true CVA and abd benign. CT report pending 10/01/18 08:20 CT report read as negative for ureteral stone or other acute pathology. Dc w/ pain control and f/u with PMD *DC/Admit/Observation/Transfer Diagnosis at time of Disposition: Lower back pain Qualifiers: Chronicity: acute Back pain laterality: left Sciatica presence: without sciatica Qualified Code(s): M54.5 - Low back pain - Discharge Dispostion Disposition: HOME Condition at time of disposition: Improved - Prescriptions Prescriptions: Cyclobenzaprine HCl [Flexeril 10 mg] 10 mg PO TID PRN #9 tablet PRN Reason: Back Pain Ibuprofen [Motrin -] 600 mg PO QID #28 tablet - Referrals Referrals: Wilbert Yang MD [Primary Care Provider] - - Patient Instructions Printed Discharge Instructions: Low Back Pain Additional Instructions: You labs were normal and your Ct scan did not reveal any kidney stones The cause of your back pain might be muscular We sent motrin and a muscle relaxant to your pharmacy. Pleas take medications as directed Follow up with your PMD - Post Discharge Activity
== END 2018-10-01 08:45 | disposition home or self-care (01) ==
LOC: JER 03:33
PROC: 3E033NZ Introduction of Analgesics, Hypnotics, Sedatives into Peripheral Vein, Percutaneous Approach (ICD-10-PCS; principal; 2018-10-01)
DX: M54.5 Low back pain (principal); Z87.442 Personal history of urinary calculi; Z86.69 Personal history of other diseases of the nervous system and sense organs; Z87.09 Personal history of other diseases of the respiratory system
CPT/HCPCS: 36415; 74176-TC; 80053; 81003; 81015; 84703; 85025; 87086; 87491; 87591; 96374; 99282-25; J0131; J7030

== ENCOUNTER 2019-05-09 23:28 | Emergency (ER) | payer OTHER ==
--- NOTE | 2019-05-09 23:55 | PDOC ---
Attending Attestation - Resident Resident Name: Brain Cao - ED Attending Attestation I have performed the following: I have examined & evaluated the patient, The case was reviewed & discussed with the resident, I agree w/resident's findings & plan - HPI HPI: 05/10/19 00:52 23-year-old female with vaginal itching requesting checked for STDs. - Physicial Exam PE: 05/10/19 00:52 Agree with resident exam - Medical Decision Making 05/10/19 00:54 23-year-old female with vaginal itching Pelvic exam performed by the emergency department resident, Patient will receive Rocephin as well as azithromycin for possible exposure to gonorrhea/chlamydia Follow-up recommended with MDM DEVELOPER
--- NOTE | 2019-05-09 23:56 | PDOC ---
History of Present Illness - General Chief Complaint: Vaginal Sxs Stated Complaint: VAGINAL PAIN Time Seen by Provider: 05/09/19 23:51 History Source: Patient Exam Limitations: No Limitations - History of Present Illness Initial Comments: 23 yo f w a hx of seizures, asthma, and kidney stones presents to the ER with vaginal itching for the past 3 months. The patient endorses recent unprotected sexual encounters with multiple partners and she has not used protection with any of these partners. She states she is now worried bc she has been experiencing a greenish/yellow discharge for the past few days. She is concerned that she has an STD and requests to be tested for gonorrhea, chlamydia , and trichomonas. The patient also endorses a significant amount of friction between her legs and a rash on her thighs. She also endorses dysuria for the past few days but denies urgency or frequency. LMP: Ended 2 days ago PCP: Alexander Yang PSH: None reported Social Hx: Smokes marijuana. Denies cigarettes, alcohol, or other substance usage. Allergies: NKA, NKDA Past History - Past Medical History Allergies/Adverse Reactions: Allergies Allergy/AdvReac Type Severity Reaction Status Date / Time No Known Allergies Allergy Verified 05/09/19 23:59 Home Medications: Ambulatory Orders Cyclobenzaprine HCl [Flexeril 10 mg] 10 mg PO TID PRN #9 tablet 10/01/18 Ibuprofen [Motrin -] 600 mg PO QID #28 tablet 10/01/18 Asthma: Yes CVA: No COPD: No Kidney Stones: Yes Seizures: Yes - Surgical History Appendectomy: No Gastric Stapling: No - Reproductive History (#): 3 Para: 1 Therapeutic (s) & number: Yes Spontaneous : 2 - Immunization History TDAP Vaccination: Yes Immunization Up to Date: Yes - Suicide/Smoking/Psychosocial Hx Smoking Status: No Smoking History: Unknown if ever smoked Have you smoked in the past 12 months: No Number of Cigarettes Smoked Daily: 0 Hx Alcohol Use: No Drug/Substance Use Hx: No Substance Use Type: None Review of Systems - Review of Systems Able to Perform ROS?: Yes Comments:: CONSTITUTIONAL: Absent: fever, no chills, no fatigue EYES: Absent: visual changes ENT: Absent: ear pain, no sore throat CARDIOVASCULAR: Absent: chest pain, no palpitations RESPIRATORY: Absent: cough, no SOB GI: Absent: abdominal pain, no nausea, no vomiting, no constipation, no diarrhea GENITOURINARY: Present: vaginal itching, dysuria Absent: no frequency, no hematuria MUSKULOSKELETAL: Absent: back pain, no arthralgia, no myalgia SKIN: Absent: rash NEURO: Absent: headache *Physical Exam - Physical Exam Comments: GENERAL: Obese. Well-appearing, well-nourished. No apparent distress. HEENT: Normocephalic, atraumatic. PERRL, EOM intact. CARDIOVASCULAR: Normal S1, S2. Regular rate and rhythm. PULMONARY: No evidence of respiratory distress. Lungs clear to auscultation bilaterally. No wheezing, rales or rhonchi. ABDOMEN: Soft, non-distended, non-tender. EXTREMITIES: Normal ROM in all four extremities. No gross deformities. SKIN: Warm, dry. No rash NEUROLOGICAL: No focal neurological deficits. Female Pelvic Exam: positive: normal external exam, cervical os closed, normal adnexa, normal size ovaries. negative: CMT, discharge, lesions, Bartholin mass , adnexal tenderness, vaginal bleeding Medical Decision Making - Medical Decision Making 23 yo f w a hx of seizures, asthma, and kidney stones presents to the ER with vaginal itching for the past 3 months. The patient endorses recent unprotected sexual encounters with multiple partners and she has not used protection with any of these partners. She states she is now worried bc she has been experiencing a greenish/yellow discharge for the past few days. She is concerned that she has an STD and requests to be tested for gonorrhea, chlamydia , and trichomonas. The patient also endorses a significant amount of friction between her legs and a rash on her thighs. She also endorses dysuria for the past few days but denies urgency or frequency. LMP: Ended 2 days ago Vital Signs Temp Pulse Resp BP Pulse Ox 98.4 F 69 18 110/51 L 99 05/09/19 23:46 05/09/19 23:46 05/09/19 23:46 05/09/19 23:46 05/09/19 23:46 DDx IBNLT: UTI/Pylo, - IUP vs ectopic, STD, brannon, vaginitis Plan: Urine, STD tests, trichomonas, Empiric Abx coverage, DC Covering patient with 1G ceftriaxone IM and 1G azithromycin orally Patient will receive call back in 4 days time regarding STD results. *DC/Admit/Observation/Transfer Diagnosis at time of Disposition: Vaginal discharge - Discharge Dispostion Disposition: HOME Condition at time of disposition: Stable Decision to Admit order: No - Referrals Referrals: lAexander Yang MD [Primary Care Provider] - - Patient Instructions Printed Discharge Instructions: DI for Pelvic Inflammatory Disease, DI for Vaginal Itching Additional Instructions: You came into the ED with vaginal itching. We sent an STD test on you which you will get a call back regarding in 4 days time. Please make sure to follow up with your primary care doctor for further tests. Come back to the ER immediately if your pain worsens, you get a fever, or have any other new or worsening concerns. Thank you for coming to the [facility] ER. We hope you feel better soon! Print Language: HUNGARIAN - Post Discharge Activity
[2019-05-10 00:05] VITALS: TEMP 98.4; BMI 33.2
[2019-05-10 00:41] LABS: EPI CELLS 4.4 /HPF (0-5/HPF); HYALINE CASTS 2 /lpf (0-8); PH,URINE 5.5 (5.0-8.0); URINE APPEARANCE CLEAR; URINE BACTERIA 2.9 /hpf (NEGATIVE); URINE BILIRUBIN NEGATIVE (NEGATIVE); URINE COLOR YELLOW; URINE GLUCOSE (UA) NEGATIVE (NEGATIVE); URINE KETONE NEGATIVE (NEGATIVE); URINE LEUK ESTERASE TRACE (NEGATIVE); URINE NITRITE NEGATIVE (NEGATIVE); URINE PROTEIN NEGATIVE (NEGATIVE); URINE RBC 2 /hpf (0-4); URINE UROBILINOGEN 0.2 mg/dL (0.2-1.0); URINE WBC 2 /hpf (0-5)
[2019-05-10] MEDS ORDERED: AZITHROMYCIN 500 MG TABLET PO ONE (00:53)
[2019-05-10] MEDS ORDERED: cefTRIAXone SODIUM 1 GM VIAL ONE ×2 (01:06→01:17)
[2019-05-10] MEDS ORDERED: AZITHROMYCIN 250 MG TABLET ONE (01:06)
[2019-05-10] MEDS ORDERED: LIDOCAINE HCL 1%, 10 MG/ML (20ML VIAL) ONE (01:17)
[2019-05-10 02:01] VITALS: BP 115/55; PULSE 73
== END 2019-05-10 01:35 | disposition home or self-care (01) ==
LOC: JER 23:28
DX: N89.8 Other specified noninflammatory disorders of vagina (principal); Z11.3 Encounter for screening for infections with a predominantly sexual mode of transmission
CPT/HCPCS: 36415; 81003; 84703; 87077; 87086; 87186; 87491; 87591; 87661; 99282-25

== ENCOUNTER 2019-06-03 17:54 | Emergency (ER) | payer OTHER ==
[2019-06-03 18:01] VITALS: BMI 30.2
--- NOTE | 2019-06-03 18:31 | PDOC ---
History of Present Illness - General Chief Complaint: Pain Stated Complaint: ABDOMINAL PAIN Time Seen by Provider: 06/03/19 18:17 History Source: Patient Exam Limitations: No Limitations - History of Present Illness Initial Comments: 06/03/19 18:24 Patient is a 23 year old female with no pmhx c/o lower abd pain x 2weeks. She describes the pain as 10/10 sharp, stabbing, crampy and assoc/w nausea, vomiting - green material, vaginal discharge - thick yellow greenish discharge, vaginal pain, bilateral lower back pain, sob, weakness, fatigue. Patient reports that she had unprotected sex 2 weeks ago and shortly after started having symptoms. She has a history of h/o GC which was treated. Denies dysuria , hematuria. LMP 05/26/19. Famhx father with DVT, (+) recent travel bus ride to [place] PMD: Dr. Yang pmhx as above PSOCHX: ALL: NKDA GENERAL/CONSTITUTIONAL: (+) fever, (-) chills. No weakness. No weight change. HEAD, EYES, EARS, NOSE AND THROAT: No change in vision. No ear pain or discharge. No sore throat. CARDIOVASCULAR: No chest pain or shortness of breath. RESPIRATORY: No cough, wheezing, or hemoptysis. GASTROINTESTINAL: (-) nausea, vomiting, (-) diarrhea or constipation. No rectal bleeding. GENITOURINARY: No dysuria, frequency, or change in urination. MUSCULOSKELETAL: No joint or muscle swelling or pain. No neck or back pain. SKIN AND BREASTS: No rash or easy bruising. NEUROLOGIC: No headache, vertigo, loss of consciousness, or loss of sensation. PSYCHIATRIC: No depression or anxiety. ENDOCRINE: No increased thirst. No abnormal weight change. HEMATOLOGIC/LYMPHATIC: No anemia, easy bleeding, or history of blood clots. ALLERGIC/IMMUNOLOGIC: No hives or skin allergy. No latex allergy. GENERAL: The patient is awake, alert, and fully oriented, in no acute distress. HEAD: Normal with no signs of trauma. EYES: Pupils equal, round and reactive to light, extraocular movements intact, sclera anicteric, conjunctiva clear. ENT: Ears normal, nares patent, oropharynx clear without exudates. Moist mucous membranes. NECK: Normal range of motion, supple without lymphadenopathy, JVD, or masses. LUNGS: Breath sounds equal, clear to auscultation bilaterally. No wheezes, and no crackles. HEART: Regular rate and rhythm, normal S1 and S2 without murmur, rub. ABDOMEN: Soft, (+) tenderness lower abd, normoactive bowel sounds. No guarding , no rebound. No masses. PELVIC: no discharge, no odor, no bleeding, b/l adnexal tenderness, (+) CMT EXTREMITIES: Normal range of motion, no edema. No clubbing or cyanosis. No cords, erythema, or tenderness. NEUROLOGICAL: Cranial nerves II through XII grossly intact. Normal speech, normal gait. PSYCH: Normal mood, normal affect. SKIN: Warm, Dry, normal turgor, no rashes or lesions noted. Past History - Past Medical History Allergies/Adverse Reactions: Allergies Allergy/AdvReac Type Severity Reaction Status Date / Time No Known Allergies Allergy Verified 06/03/19 18:00 Home Medications: Ambulatory Orders Cyclobenzaprine HCl [Flexeril 10 mg] 10 mg PO TID PRN #9 tablet 10/01/18 Ibuprofen [Motrin -] 600 mg PO QID #28 tablet 10/01/18 Nitrofurantoin Monohyd/M-Cryst [Macrobid -] 100 mg PO BID #14 capsule 05/13/19 Asthma: Yes CVA: No COPD: No Kidney Stones: Yes Seizures: Yes - Surgical History Appendectomy: No Gastric Stapling: No - Reproductive History (#): 3 Para: 1 Therapeutic (s) & number: Yes Spontaneous : 2 - Immunization History TDAP Vaccination: Yes Immunization Up to Date: Yes - Suicide/Smoking/Psychosocial Hx Smoking Status: No Smoking History: Never smoked Have you smoked in the past 12 months: No Number of Cigarettes Smoked Daily: 0 Hx Alcohol Use: No Drug/Substance Use Hx: No Substance Use Type: None *Physical Exam - Vital Signs Last Vital Signs Temp Pulse Resp BP Pulse Ox 98.8 F 102 H 18 112/65 99 06/03/19 17:56 06/03/19 17:56 06/03/19 17:56 06/03/19 17:56 06/03/19 17:56 ED Treatment Course - LABORATORY CBC & Chemistry Diagram: 06/03/19 19:15 06/03/19 19:15 Medical Decision Making - Medical Decision Making 06/03/19 18:24 Patient is a 23 year old female with no pmhx c/o lower abd pain x 2weeks. She describes the pain as 10/10 sharp, stabbing, crampy that radiates to the b/l back and assoc/w nausea, vomiting - green material, vaginal discharge - thick yellow greenish discharge, vaginal pain, bilateral lower back pain, intermittent fever, sob, weakness, fatigue. Patient reports that she had unprotected sex 2 weeks ago and shortly after started having symptoms. States she has greenish discharge coming up from her throat, however she has no sore throat. States she popped a pustule in her throat which drained greenish fluid. She has a history of h/o GC which was treated. Denies dysuria, hematuria. LMP . Famhx father with DVT, (+) recent travel bus ride to [place]. DDX: kidney stone, UTI, pyelonephritis, STD, appendicitis Labs, IV fluid, pain meds CT abdomen and pelvis rule out appendectomy. Reassess Patient pain given Toradol [address] Scan patient complains of pain given Tylenol 1 g IV Patient states pain now is 3/10 06/04/19 00:06 Patient Full Name: LY MARKS Patient Accession No: [id number] Patient : 1995 Reason for Exam: abd pain Referring Physician: Patient Name: KENDRICK MODI THIS IS A PRELIMINARY REPORT FROM [facility] DATE OF SERVICE: 2019-06-03 21:29:43 IMAGES: [id number] EXAM: ABDOMEN \T\ PELVIS CT WITH CONTR History: 23-year-old female with abdominal pain Comparison: CT scan abdomen and pelvis October 01, 2018 Procedure: CT scan abdomen and pelvis, dated June 03, 2019 . Axial images obtained followed by coronal and sagittal reconstructions. Intravenous contrast utilized, 100 mL Omnipaque 350 . Findings: Lung bases are clear. The liver, spleen, pancreas, adrenal glands and kidneys unremarkable. Gallbladder gallbladder fossa normal in appearance. No ureteral or bladder abnormalities noted. Rectum and perirectal space unremarkable. No large or small bowel inflammatory changes evident. Terminal ileum and appendix within normal limits. Uterus anteverted in position to the right-sided low pelvis. Follicular changes bilateral ovaries. Small amount of free fluid noted within the posterior cul-de- sac in the pelvis. No abdominal wall defects present. No free intraperitoneal air noted. Abdominal aorta/branch vessel/IVC normal in configuration. Impression: 1. No acute changes identified abdomen or pelvis. No evidence of GI or tract obstruction or inflammatory change. Terminal ileum and appendix within normal limits. 2. No adnexal masses appreciated. One or more of the following dose reduction techniques were used: automated exposure control, adjustment of the mA and/or kV according to patient size, use of iterative reconstructive technique. THIS DOCUMENT HAS BEEN ELECTRONICALLY SIGNED Davon Diaz MD 06/03/2019 23:52 EST M.D. Please call [facility] Teacher [phone] ([phone]) with questions. INTERPRETING RADIOLOGIST: Davon Diaz MD Electronically Signed: Jun 03, 2019 11:53PM EDT I discussed the physical exam findings, ancillary test results and final diagnoses with the patient. I answered all of the patient's questions. The patient was satisfied with the care received and felt comfortable with the discharge plan and treatment plan. The Patient agrees to follow up with the primary care physician within 24-72 hours. *DC/Admit/Observation/Transfer Diagnosis at time of Disposition: UTI (urinary tract infection) Qualifiers: Urinary tract infection type: site unspecified Hematuria presence: without hematuria Qualified Code(s): N39.0 - Urinary tract infection, site not specified - Discharge Dispostion Disposition: HOME Condition at time of disposition: Stable - Referrals - Patient Instructions Printed Discharge Instructions: DI for Urinary Tract Infection (UTI) Additional Instructions: Your Discharge Instructions: You must call primary care physician within 24 hours to arrange follow-up. Return to the Emergency Department with any new, persistent or worsening symptoms, for fever, chills, SOB, dizziness or any other concerning changes that may occur. - Post Discharge Activity
[2019-06-03] MEDS ORDERED: morphine CARPU-JECT 2 MG/1 ML DISP.SYRIN IVPUSH ONE (19:20)
[2019-06-03] MEDS ORDERED: ONDANSETRON 4 MG/2 ML VIAL IVPUSH PRN (19:20)
[2019-06-03] MEDS ORDERED: SODIUM CHLORIDE 0.9% 500 ML INFUS.BAG IV ONE (19:20)
[2019-06-03 19:27] LABS: BASO % 0.3 % (0-2.0); EOS % 0.7 % (0-4.5); HEMATOCRIT 37.9 % (32.4-45.2); HEMOGLOBIN 12.7 GM/dL (10.7-15.3); LYMPH % 25.6 % (8-40); MCH 33.3 pg (25.7-33.7); MCHC 33.5 g/dl (32.0-36.0); MEAN CELL VOLUME 99.4 fl (80-96); MEAN PLT VOLUME 9.5 fl (7.5-11.1); MONO % 10.3 % (3.8-10.2); NEUT % 63.1 % (42.8-82.8); PLATELET COUNT 220 K/MM3 (134-434); RBC 3.81 M/mm3 (3.60-5.2); RDW 12.9 % (11.6-15.6); WHITE BLOOD COUNT 5.5 K/mm3 (4.0-10.0)
[2019-06-03] MEDS ORDERED: ONDANSETRON 4 MG/2 ML VIAL ONE (19:28)
[2019-06-03] MEDS ORDERED: MORPHINE SULFATE 2 MG/ML VIAL ONE (19:28)
[2019-06-03 19:30] LABS: EPI CELLS >36 /HPF (0-5/HPF); HYALINE CASTS 67 /lpf (0-8); URINE APPEARANCE TURBID; URINE BACTERIA 553.7 /hpf (NEGATIVE); URINE BILIRUBIN NEGATIVE (NEGATIVE); URINE COLOR YELLOW; URINE GLUCOSE (UA) NEGATIVE (NEGATIVE); URINE KETONE TRACE (NEGATIVE); URINE LEUK ESTERASE 2+ (NEGATIVE); URINE NITRITE NEGATIVE (NEGATIVE); URINE PROTEIN TRACE (NEGATIVE); URINE RBC 5 /hpf (0-4); URINE UROBILINOGEN 0.2 mg/dL (0.2-1.0); URINE WBC 24 /hpf (0-5)
[2019-06-03 19:52] LABS: BILIRUBIN,TOTAL 0.2 mg/dL (0.2-1); BLOOD UREA NITROGEN 5.6 mg/dL (7-18); CREATININE 0.6 mg/dL (0.55-1.3); POTASSIUM 4.2 mmol/L (3.5-5.1); TOT PROT 7.2 g/dl (6.4-8.2)
[2019-06-03 19:53] LABS: INR 0.99 (0.83-1.09); PROTHROMBIN TIME (PATIENT) 11.7 SEC (9.7-13.0)
[2019-06-03 19:55] VITALS: BP 105/57; PULSE 80; TEMP 98
[2019-06-03] MEDS ORDERED: CEFTRIAXONE 1 GM in DEXTROSE 5%-WATER - 100 ML IVPB ONE (20:18)
[2019-06-03] MEDS ORDERED: CEFTRIAXONE 1 GM/50 ML BAG ONE (20:33)
[2019-06-03] MEDS ORDERED: KETOROLAC TROMETHAMINE 30 MG/1 ML VIAL IVPUSH ONE (20:57)
[2019-06-03] MEDS ORDERED: KETOROLAC TROMETHAMINE 30 MG/1 ML VIAL ONE (21:00)
[2019-06-03] MEDS ORDERED: ACETAMINOPHEN 1000 MG/100 ML VIAL (NON FORMULARY) IVPB ONE (22:17)
[2019-06-03] MEDS ORDERED: ACETAMINOPHEN INJECTION 100 ML IVPB ONE (22:24)
== END 2019-06-04 00:20 | disposition home or self-care (01) ==
LOC: JER 17:54
PROC: 3E0337Z Introduction of Electrolytic and Water Balance Substance into Peripheral Vein, Percutaneous Approach (ICD-10-PCS; principal; 2019-06-03)
PROC: 3E033NZ Introduction of Analgesics, Hypnotics, Sedatives into Peripheral Vein, Percutaneous Approach (ICD-10-PCS; 2019-06-03)
PROC: 3E033GC Introduction of Other Therapeutic Substance into Peripheral Vein, Percutaneous Approach (ICD-10-PCS; 2019-06-03)
PROC: 3E0333Z Introduction of Anti-inflammatory into Peripheral Vein, Percutaneous Approach (ICD-10-PCS; 2019-06-03)
DX: N39.0 Urinary tract infection, site not specified (principal); J45.909 Unspecified asthma, uncomplicated; R56.9 Unspecified convulsions
CPT/HCPCS: 36415; 74177-TC; 80053; 81003; 84702; 85025; 85379; 85610; 87070; 87086; 87491; 87591; 87880; 96365; 96375; 99282-25; J0131

== ENCOUNTER 2019-08-05 14:21 | Emergency (ER) | payer OTHER ==
[2019-08-05 14:27] VITALS: PULSE 83; BMI 29.2
--- NOTE | 2019-08-05 17:03 | PDOC ---
History of Present Illness - General Chief Complaint: Sore Throat Stated Complaint: SORE THROAT/KIDNEY STONES Time Seen by Provider: 08/05/19 16:59 - History of Present Illness Initial Comments: 08/05/19 16:55 CHIEF COMPLAINT: b/l flank pain, LLQ pain HISTORY OF PRESENT ILLNESS: 23 yo F with hx of seizures, asthma, and kidney stones diagnosed last year presents to ED with b/l flank pain and LLQ pain. Patient reports 4 episodes of vomiting in the last 48 hours and c/o of dark urine, "stabbing" with urination x 4 days ago. She reports a hx of kidney stones. Patient currently menstruating. Denies diarrhea. Denies any URI symptoms. Patient does not believe it is an STI as she denies being sexually active since last STD testing. No recent travel or sick contacts. PAST MEDICAL HISTORY: Denies past medical history FAMILY HISTORY: Denies SOCIAL HISTORY: Denies tobacco, alcohol, illicit drug use. SURGICAL HISTORY: Denies ALLERGIES: No known drug allergies REVIEW OF SYSTEMS General/Constitutional: Denies fever or chills. Denies weakness, weight change. HEENT: Denies change in vision. Denies ear pain or discharge. Denies sore throat. Cardiovascular: Denies chest pain or shortness of breath. Respiratory: Denies cough, wheezing, or hemoptysis. Gastrointestinal: Denies nausea, vomiting, diarrhea or constipation. Denies rectal bleeding. Genitourinary: Dysuria x 2 days. Musculoskeletal: B/l back pain x 4 days . Skin: Denies rash or easy bruising. Neurologic: Denies headache, vertigo, loss of consciousness, or loss of sensation. Psychiatric: Denies depression or anxiety. Endocrine: Denies increased thirst. Denies abnormal weight change. Hematologic/Lymphatic: Denies anemia, easy bleeding, or history of blood clots. Allergic/Immunologic: Denies hives or skin allergy. Denies latex allergy. PHYSICAL EXAM General Appearance: Well-appearing, appropriately dressed. No apparent distress , no intoxication. HEENT: EOMI, PERRLA, normal ENT inspection, normal voice, TMs normal, pharynx normal. No conjunctival pallor. No photophobia, scleral icterus. Neck: Supple. Trachea midline. No tenderness, rigidity, carotid bruit, stridor , lymphadenopathy, or thyromegaly. Respiratory/Chest: Lungs CTAB. No shortness of breath, chest tenderness, respiratory distress, accessory muscle use. No crackles, rales, rhonchi, stridor , wheezing, dullness Cardiovascular: RRR. S1, S2. No JVD, murmur, bradycardia, tachycardia. Vascular Pulses: Dorsalis-Pedis (R): 2+, Dorsalis-Pedis (L): 2+ Gastrointestinal/Abdominal: Marked LLQ tenderness on palpation. Normal bowel sounds. No organomegaly, pulsatile mass, guarding, hernia, hepatomegaly, splenomegaly. Lymphatic: No adenopathy, tenderness. Musculoskeletal/Extremities: B/l CVA tenderness. Normal inspection. FROM of all extremities, normal capillary refill. Pelvis Stable. No CVA tenderness. No tenderness to extremities, pedal edema, swelling, erythema or deformity. Integumentary: Appropriate color, dry, warm. No cyanosis, erythema, jaundice or rash Neurologic: oil expert II-XII intact. Fully oriented, alert. Appropriate mood/affect. Motor strength 5/5. No appreciable EOM palsy, facial droop or sensory deficit. Past History - Past Medical History Allergies/Adverse Reactions: Allergies Allergy/AdvReac Type Severity Reaction Status Date / Time No Known Allergies Allergy Verified 08/05/19 14:27 Home Medications: Ambulatory Orders Nitrofurantoin Monohyd/M-Cryst [Macrobid -] 100 mg PO BID #14 capsule 08/05/19 Phenazopyridine HCl [Pyridium] 100 mg PO TID #21 tablet 08/05/19 Asthma: Yes CVA: No COPD: No Kidney Stones: Yes Seizures: Yes - Surgical History Appendectomy: No Gastric Stapling: No - Reproductive History (#): 3 Para: 1 Therapeutic (s) & number: Yes Spontaneous : 2 - Immunization History TDAP Vaccination: Yes Immunization Up to Date: Yes - Suicide/Smoking/Psychosocial Hx Smoking Status: No Smoking History: Current every day smoker Have you smoked in the past 12 months: No Number of Cigarettes Smoked Daily: 0 Information on smoking cessation initiated: No Hx Alcohol Use: No Drug/Substance Use Hx: No Substance Use Type: None *Physical Exam - Vital Signs Last Vital Signs Temp Pulse Resp BP Pulse Ox 98.2 F 83 18 120/62 99 08/05/19 14:25 08/05/19 14:25 08/05/19 14:25 08/05/19 14:25 08/05/19 14:25 Medical Decision Making - Medical Decision Making 08/05/19 17:08 23 yo F with hx of seizures, asthma, and kidney stones diagnosed last year presents to ED with LLQ and urinary pain. -UA, UCx, upreg -toradol -US 08/05/19 21:12 UA positive for nitrites. Will treat for UTI. Meds sent to pharm. Return precautions given. *DC/Admit/Observation/Transfer Diagnosis at time of Disposition: UTI (urinary tract infection) Qualifiers: Urinary tract infection type: site unspecified Hematuria presence: with hematuria Qualified Code(s): N39.0 - Urinary tract infection, site not specified - Discharge Dispostion Disposition: HOME Condition at time of disposition: Stable Decision to Admit order: No - Prescriptions Prescriptions: Nitrofurantoin Monohyd/M-Cryst [Macrobid -] 100 mg PO BID #14 capsule Phenazopyridine HCl [Pyridium] 100 mg PO TID #21 tablet - Referrals Referrals: Wilbert Yang MD [Primary Care Provider] - - Patient Instructions Printed Discharge Instructions: DI for Urinary Tract Infection (UTI) Additional Instructions: Please take medications as prescribed and complete the entire course of antibiotics, even if your symptoms improve. If you develop fever, chills, vomiting, diarrhea, severe back pain, or any new or worsening symptoms, please return to the ER. - Post Discharge Activity Forms/Work/School Notes: Back to Work
[2019-08-05] MEDS ORDERED: KETOROLAC TROMETHAMINE 30 MG/1 ML VIAL IVPUSH ONE (17:05)
[2019-08-05] MEDS ORDERED: KETOROLAC TROMETHAMINE 15 MG/ML VIAL ONE (18:09)
[2019-08-05 20:30] VITALS: BP 122/78; TEMP 98.3
== END 2019-08-05 21:36 | disposition home or self-care (01) ==
LOC: JER 14:21
PROC: 3E0333Z Introduction of Anti-inflammatory into Peripheral Vein, Percutaneous Approach (ICD-10-PCS; principal; 2019-08-05)
DX: N39.0 Urinary tract infection, site not specified (principal); Z87.442 Personal history of urinary calculi; J45.909 Unspecified asthma, uncomplicated; G40.909 Epilepsy, unspecified, not intractable, without status epilepticus
CPT/HCPCS: 76775-TC; 81003; 81015; 84703; 87077; 87086; 96374; 99283-25

== ENCOUNTER 2019-09-20 04:53 | Emergency (ER) | payer OTHER ==
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
[2019-09-20 05:23] VITALS: BP 124/62; PULSE 72; TEMP 98.8; BMI 29.2
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
[2019-09-20] MEDS ORDERED: LIDOCAINE 5% TOPICAL PATCH TP ONE (06:17)
[2019-09-20] MEDS ORDERED: LIDOCAINE 5% TOPICAL PATCH ONE (06:58)
--- NOTE | 2019-09-20 07:28 | PDOC ---
*Physical Exam - Vital Signs Last Vital Signs Temp Pulse Resp BP Pulse Ox 98.8 F 72 18 124/62 98 09/20/19 04:53 09/20/19 04:53 09/20/19 04:53 09/20/19 04:53 09/20/19 04:53 ED Treatment Course - ADDITIONAL ORDERS Additional order review: Laboratory Results 09/20/19 06:00 Urine HCG, Qual Negative - RADIOLOGY Radiology Studies Ordered: Category Date Time Status CHEST PA & LAT [RAD] Stat Radiology 09/20/19 07:20 Ordered - Medications Given in the ED: ED Medications Discontinued Medications Generic Name Dose Route Start Last Admin Trade Name Fretila PRN Reason Stop Dose Admin Lidocaine 1 patch 09/20/19 06:17 09/20/19 07:02 Lidoderm Patch - TP 09/20/19 06:18 1 patch ONCE ONE Administration Medical Decision Making - Medical Decision Making Pt was signed out to me by resident Dr. Kim, who explained the presentation , ED course, any pending results, and needed interventions. Pending results include chest and L knee x-ray. Pt is currently stable and has been ambulating in ED. Providing 800 mg PO motrin for discomfort. 09/20/19 07:27 X-rays negative for fracture. Pt was provided knee immobilizer and crutches. Pt left ED before receiving discharge paperwork or instructions, but was ambulatory on her own while leaving the ED. 09/20/19 08:11 Discharge - Discharge Information Problems reviewed: Yes Clinical Impression/Diagnosis: Muscle strain Knee pain Qualifiers: Chronicity: acute Laterality: left Qualified Code(s): M25.562 - Pain in left knee Condition: Good Disposition: HOME - Admission No - Follow up/Referral Referrals: Alexander Yang MD [Primary Care Provider] - - Patient Discharge Instructions Patient Printed Discharge Instructions: DI for Muscle Strain Additional Instructions: You were seen in the ED for complaints of neck pain and knee pain In the ED you were evaluated with imaging Your results showed no fractures There does not appear to be an acute need for immediate hospitalization. You are advised to follow up with your Primary Care Physician within 1 week. You have Robaxin prescribed to you already and you should take it as prescribed. Return to the ED immediately if you experience worsening pain, numbness, tingling or weakness. - Post Discharge Activity
[2019-09-20] MEDS ORDERED: IBUPROFEN 400 MG TABLET (FP) PO ONE ×3 (07:30→08:02)
[2019-09-20] MEDS ORDERED: LIDOCAINE PATCH REMOVAL MC SCH (22:00)
== END 2019-09-20 08:23 | disposition home or self-care (01) ==
LOC: JER 04:53
PROC: 2W3RXYZ Immobilization of Left Lower Leg using Other Device (ICD-10-PCS; principal; 2019-09-20)
DX: S16.1XXD Strain of muscle, fascia and tendon at neck level, subsequent encounter (principal); M25.562 Pain in left knee; V43.52XD Car driver injured in collision with other type car in traffic accident, subsequent encounter
CPT/HCPCS: 71046-TC-FY; 72125-TC; 73560-TC-LT-FY; 84703; 99281-25

== ENCOUNTER 2019-11-21 00:35 | Emergency (ER) | payer OTHER ==
[2019-11-21 01:00] VITALS: BP 121/67; PULSE 99; TEMP 98.4; BMI 32.7
--- NOTE | 2019-11-21 01:31 | PDOC ---
Documentation entered by Katy Spence SCRIBE, acting as scribe for Harriet Garcia MD. Harriet Garcia MD: This documentation has been prepared by the supaibe, Katy Spence SCRIBE, under my direction and personally reviewed by me in its entirety. I confirm that the documentation accurately reflects all work, treatment, procedures, and medical decision making performed by me. Attending Attestation - Resident Resident Name: Dontae German - ED Attending Attestation I have performed the following: I have examined & evaluated the patient, The case was reviewed & discussed with the resident, I agree w/resident's findings & plan, Exceptions are as noted - HPI HPI: 11/21/19 01:30 This 24 yo female just found out she was and was concerned because she had some spotting 24-year-old female presents in no acute distress Head normocephalic atraumatic Neck is supple Lungs are clear to auscultation CVS is regular rate rhythm S1-S2 Abdomen soft, no rebound and no guarding Skin is warm and dry Neuro alert and oriented x3 and ambulating with ease in the emergency department 11/21/19 01:43 - Physicial Exam PE: 11/21/19 01:44 PLEASE SEE THE ABO1VE PHYSICAL EXAM - Medical Decision Making 11/21/19 01:36 plan transvaginal US,[facility] [place]
--- NOTE | 2019-11-21 01:36 | PDOC ---
History of Present Illness - General Chief Complaint: Vaginal Bleeding Stated Complaint: VAGINAL BLEEDING, , 13 WKS Time Seen by Provider: 11/21/19 01:00 - History of Present Illness Initial Comments: The pt is a 24F w/ a history of asthma who presents for evaluation of 1 day of vaginal spotting. She reports her LMP was 08/2019 but she did not find out she was until recently. She endorses intermittent pelvic cramping throughout as well as intermittent N/V that has not changed in quality or severity. She denies fevers/chills, dizziness, vision changes, chest pain, trouble breathing, vaginal discharge, dysuria, hematuria, diarrhea, or blood in her stool. 11/21/19 01:32 Past History - Past Medical History Allergies/Adverse Reactions: Allergies Allergy/AdvReac Type Severity Reaction Status Date / Time No Known Allergies Allergy Verified 11/21/19 00:58 Home Medications: Ambulatory Orders Misoprostol [Cytotec -] 200 mcg PO TID #9 tablet 11/21/19 Asthma: Yes CVA: No COPD: No Kidney Stones: Yes Seizures: Yes - Surgical History Appendectomy: No Gastric Stapling: No - Reproductive History Is Patient Now?: Yes (#): 3 Para: 1 Therapeutic (s) & number: No Spontaneous : 2 - Immunization History TDAP Vaccination: Yes Immunization Up to Date: Yes - Psycho Social/Smoking Cessation Hx Smoking Status: No Smoking History: Never smoked Have you smoked in the past 12 months: No Number of Cigarettes Smoked Daily: 0 Information on smoking cessation initiated: No Hx Alcohol Use: No Drug/Substance Use Hx: No Substance Use Type: None Review of Systems - Review of Systems Able to Perform ROS?: Yes Comments:: GENERAL/CONSTITUTIONAL: No fever or chills. No weakness HEAD, EYES, EARS, NOSE AND THROAT: No change in vision. No change in hearing. No sore throat CARDIOVASCULAR: No chest pain or shortness of breath RESPIRATORY: Denies cough, hemoptysis GASTROINTESTINAL: No nausea, vomiting, diarrhea or constipation GENITOURINARY: No dysuria, frequency, or change in urination MUSCULOSKELETAL: No joint or muscle swelling or pain. No neck pain SKIN: No rash NEUROLOGIC: No headache, vertigo, loss of consciousness, or change in strength/ sensation ENDOCRINE: No increased thirst. No abnormal weight change HEMATOLOGIC/LYMPHATIC: No anemia, easy bleeding, or history of blood clots ALLERGIC/IMMUNOLOGIC: No hives or skin allergy 11/21/19 02:23 Is the patient limited Sami proficient: No *Physical Exam - Vital Signs Last Vital Signs Temp Pulse Resp BP Pulse Ox 98.4 F 99 H 20 121/67 98 11/21/19 00:59 11/21/19 00:59 11/21/19 00:59 11/21/19 00:59 11/21/19 00:59 - Physical Exam GENERAL: Awake, alert, and oriented to person/place/time, in no acute distress HEAD: No signs of trauma, normocephalic, atraumatic EYES: PERRLA, EOMI, sclera anicteric, conjunctiva clear ENT: Hearing grossly normal, nares patent, oropharynx clear without exudates. No uvular deviation. Moist mucosa LUNGS: No distress, speaks in full sentences, clear to auscultation bilaterally HEART: Regular rate and rhythm, normal S1 and S2, no murmurs appreciated, peripheral pulses normal and equal bilaterally ABDOMEN: Soft, nontender, normoactive bowel sounds. No guarding, no rebound EXTREMITIES: Normal inspection, Normal range of motion, no edema. No clubbing or cyanosis NEUROLOGICAL: Cranial nerves II through XII grossly intact. Normal speech, normal gait, no focal sensorimotor deficits SKIN: Warm, Dry PELVIC: External genitalia unremarkable. Speculum exam with normal appearing whitish vaginal discharge. Vaginal wall mucosa is unremarkable Cervix visualized w/ small amount of blood w/o active hemorrhage, no clot, no POC visualized Bimanual exam without cervical motion tenderness, cervix closed, no adnexal tenderness or any masses appreciated 11/21/19 02:24 ED Treatment Course - LABORATORY CBC & Chemistry Diagram: 11/21/19 01:40 11/21/19 02:40 - RADIOLOGY Radiograph Interpretation: THIS IS A PRELIMINARY REPORT FROM [facility] MACHINE OPERATOR DATE OF SERVICE: 2019-11-21 01:14:48 Single intrauterine measuring gestational age 7 weeks 6 days with no detectable heart rate, probably representing demise. No ovarian torsion bilterally. Color flow with appropriate arterial and/or venous waveforms. 11/21/19 02:54 Medical Decision Making - Medical Decision Making The pt is a 24F w/ a history of asthma who presents for evaluation of 1 day of vaginal spotting Ddx: Threatened/missed/incomplete AB ED Course Labs and urine sent TVUS 11/21/19 02:27 No leukocytosis No anemia Tylenol given for pain 11/21/19 02:41 Lytes unremarkable No JONI LFTs wnl B-hCG 8369 US notable for missed Ab Case discussed w/ Dr. mendez, will give misoprostol 400mg PO once in ED and Rx for misoprostol 200mg PO TID for 3 days Pt to follow up with OBGYN in 2 days (Tuesday) Results and need to follow up discussed with patient. All questions answered. Plan for D/C Discharge instructions and return precautions given Patient in agreement and verbalized understanding Dispo: Home 11/21/19 04:16 Discharge - Discharge Information Problems reviewed: Yes Clinical Impression/Diagnosis: Missed Condition: Stable Disposition: HOME - Admission No - Additional Discharge Information Prescriptions: Misoprostol [Cytotec -] 200 mcg PO TID #9 tablet - Follow up/Referral Referrals: Alexander Yang MD [Primary Care Provider] - Melba Mendez MD [Staff Physician] - - Patient Discharge Instructions Patient Printed Discharge Instructions: DI for Miscarriage Additional Instructions: You were seen in the Emergency Department and found to have a missed or miscarriage. You were given misoprostol and a prescription for the same was sent to your pharmacy. Take 3 times a day for 3 days. Follow up with your OBGYN clinic Tuesday. With this medication you can expect cramping. For pain you may take Tylenol 650mg every 6 hours and Ibuprofen 600mg every 6-8 hours, alternating them each time. Return to the Emergency Department if you develop fevers, chest pain, trouble breathing, pain that will not stop, heavy/persistent vaginal bleeding, lightheaded/dizziness, worsening symptoms, or any new/concerning symptoms. - Post Discharge Activity Work/Back to School Note: Back to Work
[2019-11-21 02:28] LABS: BASO % 0.3 % (0-2.0); EOS % 0.7 % (0-4.5); HEMATOCRIT 35.8 % (32.4-45.2); HEMOGLOBIN 11.9 GM/dL (10.7-15.3); LYMPH % 28.8 % (8-40); MCH 33.3 pg (25.7-33.7); MCHC 33.2 g/dl (32.0-36.0); MEAN PLT VOLUME 9.1 fl (7.5-11.1); MONO % 8.3 % (3.8-10.2); NEUT % 61.9 % (42.8-82.8); PLATELET COUNT 253 K/MM3 (134-434); RBC 3.58 M/mm3 (3.60-5.2); RDW 12.9 % (11.6-15.6); WHITE BLOOD COUNT 6.6 K/mm3 (4.0-10.0)
[2019-11-21 02:32] LABS: EPI CELLS 26.5 /HPF (0-5/HPF); HYALINE CASTS 20 /lpf (0-8); URINE APPEARANCE CLOUDY; URINE BACTERIA 346.2 /hpf (NEGATIVE); URINE BILIRUBIN NEGATIVE (NEGATIVE); URINE COLOR YELLOW; URINE GLUCOSE (UA) NEGATIVE (NEGATIVE); URINE KETONE TRACE (NEGATIVE); URINE LEUK ESTERASE NEGATIVE (NEGATIVE); URINE NITRITE NEGATIVE (NEGATIVE); URINE PROTEIN TRACE (NEGATIVE); URINE RBC 1 /hpf (0-4); URINE WBC 6 /hpf (0-5)
[2019-11-21 03:26] LABS: ALBUMIN 3.7 g/dl (3.4-5.0); BILIRUBIN,TOTAL 0.2 mg/dL (0.2-1); BLOOD UREA NITROGEN 8.4 mg/dL (7-18); CALCIUM 8.6 mg/dL (8.5-10.1); CREATININE 0.5 mg/dL (0.55-1.3); POTASSIUM 3.9 mmol/L (3.5-5.1); TOT PROT 7.1 g/dl (6.4-8.2)
[2019-11-21 03:41] LABS: URINE CRYSTALS CA OXALATE /hpf
[2019-11-21] MEDS ORDERED: ACETAMINOPHEN 325 MG TABLET (FP) PO ONE (03:56)
[2019-11-21] MEDS ORDERED: ACETAMINOPHEN 325 MG TABLET (FP) ONE (03:57)
[2019-11-21] MEDS ORDERED: MISOPROSTOL 200 MCG TABLET PO ONE (04:15)
== END 2019-11-21 04:25 | disposition home or self-care (01) ==
LOC: JER 00:35
DX: O02.1 Missed abortion (principal); J45.909 Unspecified asthma, uncomplicated
CPT/HCPCS: 36415; 76817-TC; 80053; 81003; 84702; 84703; 85025; 86850; 86900; 86901; 99283-25

== ENCOUNTER 2020-07-12 00:59 | Emergency (ER) | payer OTHER ==
[2020-07-12 01:32] VITALS: BMI 29.2
--- NOTE | 2020-07-12 02:34 | PDOC ---
History of Present Illness - General Chief Complaint: Pain, Acute Stated Complaint: KIDNEY PAIN Time Seen by Provider: 07/12/20 02:34 - History of Present Illness Initial Comments: 07/17/20 09:23 Pt presents to the ED complaining of L flank pain, nausea and vomiting and vaginal discharge. 07/17/20 09:25 Past History - Medical History Allergies/Adverse Reactions: Allergies Allergy/AdvReac Type Severity Reaction Status Date / Time No Known Allergies Allergy Verified 07/12/20 01:25 Home Medications: Ambulatory Orders Misoprostol [Cytotec -] 200 mcg PO TID #9 tablet 11/21/19 Nitrofurantoin Monohyd/M-Cryst [Macrobid -] 100 mg PO BID #14 capsule 02/21/20 Phenazopyridine HCl [Pyridium] 100 mg PO TID #14 tablet 02/21/20 Cephalexin Monohydrate [Keflex -] 500 mg PO BID 5 Days #10 capsule 07/12/20 Asthma: Yes CVA: No COPD: No Kidney Stones: Yes Seizures: Yes - Surgical History Appendectomy: No Gastric Stapling: No - Reproductive History Is Patient Now?: No (#): 3 Para: 1 Therapeutic (s) & number: No Spontaneous : 2 - Immunization History TDAP Vaccination: Yes Immunization Up to Date: Yes - Psycho-Social/Smoking History Smoking Status: No Smoking History: Never smoked Have you smoked in the past 12 months: No Number of Cigarettes Smoked Daily: 0 Information on smoking cessation initiated: No - Substance Abuse Hx (Audit-C & DAST Scrn) How often the patient has a drink containing alcohol: Never Score: In Men: 4 or > Positive; In Women: 3 or > Positive: 0 Screen Result (Pos requires Nsg. Audit-10AR): Negative In the last yr the pt used illegal drug/Rx for NonMed reason: No Score: Yes response is considered Positive: 0 Screen Result (Positive result requires Nsg. DAST-10): Negative *Physical Exam - Vital Signs Last Vital Signs Temp Pulse Resp BP Pulse Ox 98.7 F 86 20 107/56 L 99 07/12/20 01:25 07/12/20 01:25 07/12/20 01:25 07/12/20 01:25 07/12/20 01:25 - Physical Exam 07/17/20 09:26 agree with resident exam. patient is alert and oriented and in no acute distress. Abdomen soft, non tender, non distended without guarding or rebound. No CVA tenderness. ED Treatment Course - LABORATORY CBC & Chemistry Diagram: 07/12/20 03:15 07/12/20 03:15 Discharge - Discharge Information Problems reviewed: Yes Clinical Impression/Diagnosis: Pelvic inflammatory disease, Pyelonephritis UTI (urinary tract infection) Qualifiers: Urinary tract infection type: urethritis Qualified Code(s): N34.2 - Other urethritis Condition: Good Disposition: HOME - Additional Discharge Information Prescriptions: Cephalexin Monohydrate [Keflex -] 500 mg PO BID 5 Days #10 capsule - Follow up/Referral Referrals: Alexander Yang MD [Primary Care Provider] - - Patient Discharge Instructions Patient Printed Discharge Instructions: DI for Urinary Tract Infection (UTI), DI for Vaginal Discharge Additional Instructions: You were seen in the ER today for vaginal discharge and urinary systems. The results of your labs and imaging today showed a urinary tract infection without kidney stones. Please follow-up with your primary care doctor within 1-2 days to discuss your visit and make sure your symptoms have improved. Please return to the ER if you have any worsening pain, development of fevers or chills, loss of consciousness, inability to tolerate food or fluids, or any other concerns. I have sent medications to your pharmacy. Please take these medications as prescribed. - Post Discharge Activity
--- NOTE | 2020-07-12 02:56 | PDOC ---
History of Present Illness - General Chief Complaint: Pain, Acute Stated Complaint: KIDNEY PAIN Time Seen by Provider: 07/12/20 02:34 History Source: Patient Exam Limitations: No Limitations - History of Present Illness Initial Comments: 24yF with PMHx of kidney stones presents to the ED with constant sharp left flank pain radiating to the left abdomen. She reports fever, dysuria, hematuria, nausea, vomiting, and vaginal discharge. Denies diarrhea, constipation, and abnormal vaginal bleeding. PMH: as in HPI SH: none Meds: none Allergies: NKDA Tob/Etoh/Rec drugs: negx3 ROS GENERAL/CONSTITUTIONAL: +fever. No weakness. HEENT: No change in vision. No ear pain or discharge. No sore throat. CARDIOVASCULAR: No chest pain or shortness of breath RESPIRATORY: No cough, wheezing, or hemoptysis. GASTROINTESTINAL: +nausea, vomiting; no diarrhea or constipation. GENITOURINARY: + dysuria, hematuria MUSCULOSKELETAL: No joint or muscle swelling or pain. No neck or back pain. SKIN: No rash NEUROLOGIC: No headache, vertigo, loss of consciousness, or change in strength/sensation. ENDOCRINE: No increased thirst. No abnormal weight change HEMATOLOGIC/LYMPHATIC: No anemia, easy bleeding, or history of blood clots. ALLERGIC/IMMUNOLOGIC: No hives or skin allergy. PE GENERAL: Awake, alert, and fully oriented, in no acute distress HEAD: No signs of trauma, normocephalic, atraumatic EYES: PERRLA, EOMI, sclera anicteric, conjunctiva clear ENT: Auricles normal inspection, hearing grossly normal, nares patent, oropharynx clear without exudates. Moist mucosa NECK: Normal ROM, supple, no LAD, JVD, or masses HEART: Regular rate and rhythm, normal S1 and S2, no murmurs, rubs or gallops, peripheral pulses normal and equal bilaterally. LUNGS: No distress, speaks full sentences, clear to auscultation bilaterally ABDOMEN: Soft, left quadrant tenderness. No guarding, no rebound. +CVA tenderness (left) EXTREMITIES: Normal inspection, Normal range of motion, no edema. No clubbing or cyanosis. NEUROLOGICAL: CNII-XII grossly intact. Normal speech, normal gait, no focal sensorimotor deficits SKIN: Warm, Dry, normal turgor, no rashes or lesions noted PELVIC: white discharge in vaginal canal, +cervical motion tenderness Assessment and Plan 1. UTI 2. Pyelonephritis 3. Infected nephrolithiasis 4. PID Samy Ray, PGY1 Emergency Medicine Past History - Medical History Allergies/Adverse Reactions: Allergies Allergy/AdvReac Type Severity Reaction Status Date / Time No Known Allergies Allergy Verified 07/12/20 01:25 Home Medications: Ambulatory Orders Misoprostol [Cytotec -] 200 mcg PO TID #9 tablet 11/21/19 Nitrofurantoin Monohyd/M-Cryst [Macrobid -] 100 mg PO BID #14 capsule 02/21/20 Phenazopyridine HCl [Pyridium] 100 mg PO TID #14 tablet 02/21/20 Asthma: Yes CVA: No COPD: No Kidney Stones: Yes Seizures: Yes - Surgical History Appendectomy: No Gastric Stapling: No - Reproductive History Is Patient Now?: No (#): 3 Para: 1 Therapeutic (s) & number: No Spontaneous : 2 - Immunization History TDAP Vaccination: Yes Immunization Up to Date: Yes - Psycho-Social/Smoking History Smoking Status: No Smoking History: Never smoked Have you smoked in the past 12 months: No Number of Cigarettes Smoked Daily: 0 Information on smoking cessation initiated: No - Substance Abuse Hx (Audit-C & DAST Scrn) How often the patient has a drink containing alcohol: Never Score: In Men: 4 or > Positive; In Women: 3 or > Positive: 0 Screen Result (Pos requires Nsg. Audit-10AR): Negative In the last yr the pt used illegal drug/Rx for NonMed reason: No Score: Yes response is considered Positive: 0 Screen Result (Positive result requires Nsg. DAST-10): Negative *Physical Exam - Vital Signs Last Vital Signs Temp Pulse Resp BP Pulse Ox 98.7 F 86 20 107/56 L 99 07/12/20 01:25 07/12/20 01:25 07/12/20 01:25 07/12/20 01:25 07/12/20 01:25 ED Treatment Course - LABORATORY CBC & Chemistry Diagram: 07/12/20 03:15 07/12/20 03:15 Medical Decision Making - Medical Decision Making 24yF with PMHx of kidney stones presents to the ED with constant sharp left flank pain radiating to the left abdomen. -UA remarkable for 1587 bacteria, WBCs, and +leukocyte esterase - correlates cli nically to UTI. -CVA tenderness with UTI raises suspicion for pyelonephritis. -Vaginal discharge and cervical motion tenderness - likely PID. -Labs remarkable for: -CBC WNL -CMP WNL -Signed out to day team -Pending CT abdomen/pelvis Discharge - Discharge Information Problems reviewed: Yes Clinical Impression/Diagnosis: Pelvic inflammatory disease, Pyelonephritis UTI (urinary tract infection) Qualifiers: Urinary tract infection type: urethritis Qualified Code(s): N34.2 - Other urethritis Condition: Stable - Follow up/Referral Referrals: Alexander Yang MD [Primary Care Provider] - - Patient Discharge Instructions - Post Discharge Activity
[2020-07-12] MEDS ORDERED: ACETAMINOPHEN 1000 MG/100 ML VIAL (NON FORMULARY) IVPB ONE (02:57)
[2020-07-12] MEDS ORDERED: ONDANSETRON 4 MG/2 ML VIAL IVPUSH ONE (03:05)
[2020-07-12] MEDS ORDERED: ACETAMINOPHEN INJECTION 100 ML IVPB ONE (03:05)
[2020-07-12] MEDS ORDERED: KETOROLAC TROMETHAMINE 60 MG/2 ML VIAL IM ONE (03:05)
[2020-07-12] MEDS ORDERED: ONDANSETRON 4 MG/2 ML VIAL IM ONE (03:41)
[2020-07-12 03:42] LABS: BASO % 0.6 % (0-2.0); EOS % 1.3 % (0-4.5); HEMATOCRIT 38.2 % (32.4-45.2); HEMOGLOBIN 12.7 GM/dL (10.7-15.3); LYMPH % 34.1 % (8-40); MCH 33.6 pg (25.7-33.7); MCHC 33.3 g/dl (32.0-36.0); MEAN CELL VOLUME 100.7 fl (80-96); MEAN PLT VOLUME 8.8 fl (7.5-11.1); MONO % 9.7 % (3.8-10.2); NEUT % 54.3 % (42.8-82.8); PLATELET COUNT 232 K/MM3 (134-434); RBC 3.79 M/mm3 (3.60-5.2); RDW 12.9 % (11.6-15.6); WHITE BLOOD COUNT 5.7 K/mm3 (4.0-10.0)
[2020-07-12 03:44] LABS: EPI CELLS >36 /uL (0-25.1); HYALINE CASTS 6 /uL (0-3.1); PH,URINE 6.5 (5.0-8.0); URINE APPEARANCE CLOUDY; URINE BACTERIA 1587 /uL (0-1359); URINE BILIRUBIN NEGATIVE (NEGATIVE); URINE COLOR YELLOW; URINE GLUCOSE (UA) NEGATIVE (NEGATIVE); URINE KETONE TRACE (NEGATIVE); URINE LEUK ESTERASE 1+ (NEGATIVE); URINE NITRITE NEGATIVE (NEGATIVE); URINE PROTEIN NEGATIVE (NEGATIVE); URINE RBC 17 /uL (0-23.9); URINE WBC 99 /uL (0-25.8)
[2020-07-12] MEDS ORDERED: ONDANSETRON 4 MG TABLET PO ONE (03:58)
[2020-07-12 04:04] LABS: BILIRUBIN,TOTAL 0.2 mg/dL (0.2-1); BLOOD UREA NITROGEN 14.4 mg/dL (7-18); CALCIUM 8.6 mg/dL (8.5-10.1); CREATININE 0.8 mg/dL (0.55-1.3); POTASSIUM 4.2 mmol/L (3.5-5.1); TOT PROT 7.3 g/dl (6.4-8.2)
[2020-07-12] MEDS ORDERED: KETOROLAC TROMETHAMINE 60 MG/2 ML VIAL ONE (04:05)
[2020-07-12] MEDS ORDERED: ONDANSETRON *ODT* 4 MG TABLET ONE (04:06)
[2020-07-12 05:55] VITALS: TEMP 97.7
[2020-07-12] MEDS ORDERED: CEPHALEXIN MONOHYDRATE 500 MG CAPSULE (UD) PO STA (08:52)
--- NOTE | 2020-07-12 08:53 | PDOC ---
*Physical Exam - Vital Signs Last Vital Signs Temp Pulse Resp BP Pulse Ox 97.7 F 73 16 100/66 99 07/12/20 05:25 07/12/20 05:25 07/12/20 05:25 07/12/20 05:25 07/12/20 05:25 ED Treatment Course - LABORATORY CBC & Chemistry Diagram: 07/12/20 03:15 07/12/20 03:15 - ADDITIONAL ORDERS Additional order review: Laboratory Results 07/12/20 07/12/20 07/12/20 03:15 03:15 03:15 Sodium 139 Potassium 4.2 Chloride 104 Carbon Dioxide 31 Anion Gap 4 L BUN 14.4 Creatinine 0.8 Est GFR (CKD-EPI)AfAm 120.44 Est GFR (CKD-EPI)NonAf 103.92 Random Glucose 95 Calcium 8.6 Total Bilirubin 0.2 AST 17 ALT 16 Alkaline Phosphatase 70 Total Protein 7.3 Albumin 4.0 Urine Color Yellow Urine Appearance Cloudy Urine pH 6.5 D Ur Specific Hellier 1.024 Urine Protein Negative Urine Glucose (UA) Negative Urine Ketones Trace H Urine Blood Negative Urine Nitrite Negative Urine Bilirubin Negative Urine Urobilinogen 1.0 Ur Leukocyte Esterase 1+ H Urine WBC (Auto) 99 Urine RBC (Auto) 17 Urine Casts (Auto) 6 U Epithel Cells (Auto) >36 Urine Bacteria (Auto) 1587 Urine HCG, Qual Negative 07/12/20 03:15 RBC 3.79 MCV 100.7 H MCHC 33.3 RDW 12.9 MPV 8.8 Neutrophils % 54.3 Lymphocytes % 34.1 Monocytes % 9.7 Eosinophils % 1.3 D Basophils % 0.6 - RADIOLOGY Radiology Studies Ordered: Category Date Time Status ABDOMEN & PELVIS CT W/O CONTR [CT] Stat CT Scan 07/12/20 05:09 Taken - Medications Given in the ED: ED Medications Discontinued Medications Generic Name Dose Route Start Last Admin Trade Name Freq PRN Reason Stop Dose Admin Acetaminophen 1,000 mg 07/12/20 02:57 07/12/20 03:20 Ofirmev Injection - IVPB 07/12/20 02:58 1,000 mg ONCE ONE Administration Ketorolac Tromethamine 60 mg 07/12/20 03:05 07/12/20 04:15 Toradol Injection - IM 07/12/20 03:06 60 mg ONCE ONE Administration Ondansetron HCl 4 mg 07/12/20 03:05 07/12/20 03:58 Zofran Injection IVPUSH 07/12/20 03:06 Not Given ONCE ONE Ondansetron HCl 4 mg 07/12/20 03:41 07/12/20 03:58 Zofran Injection IM 07/12/20 03:42 Not Given ONCE ONE Ondansetron HCl 4 mg 07/12/20 03:58 07/12/20 04:15 Zofran - PO 07/12/20 03:59 4 mg ONCE ONE Administration Medical Decision Making - Medical Decision Making Pt was signed out to me by resident Dr. Ray, who explained the presentation, ED course, any pending results, and needed interventions. Pending results include UA and CT abd/pelvis non-contrast to evaluate for nephrolithiasis. Pt is currently stable and is lying comfortably. 07/12/20 08:42 Ct negative for renal stones Will treat UTI with keflex BID x5 days. Will treat discharge with rocephin and azithro. Pt safe for d/c to home with PCP f/u. Strict return precautions provided with pts understanding. 07/12/20 08:58 Discharge - Discharge Information Problems reviewed: Yes Clinical Impression/Diagnosis: Pelvic inflammatory disease, Pyelonephritis UTI (urinary tract infection) Qualifiers: Urinary tract infection type: urethritis Qualified Code(s): N34.2 - Other urethritis Condition: Good Disposition: HOME - Admission No - Follow up/Referral Referrals: Alexander Yang MD [Primary Care Provider] - - Patient Discharge Instructions Patient Printed Discharge Instructions: DI for Urinary Tract Infection (UTI), DI for Vaginal Discharge Additional Instructions: You were seen in the ER today for vaginal discharge and urinary systems. The results of your labs and imaging today showed a urinary tract infection without kidney stones. Please follow-up with your primary care doctor within 1-2 days to discuss your visit and make sure your symptoms have improved. Please return to the ER if you have any worsening pain, development of fevers or chills, loss of consciousness, inability to tolerate food or fluids, or any other concerns. I have sent medications to your pharmacy. Please take these medications as prescribed. - Post Discharge Activity
[2020-07-12] MEDS ORDERED: AZITHROMYCIN 500 MG TABLET PO ONE (08:58)
[2020-07-12] MEDS ORDERED: NITROFURANTOIN MACROCRYSTAL 50 MG CAPSULE (FP) PO SCH (09:00)
[2020-07-12 09:05] VITALS: BP 108/56; PULSE 79
[2020-07-12] MEDS ORDERED: CEPHALEXIN MONOHYDRATE 500 MG CAPSULE (UD) ONE (09:06)
[2020-07-12] MEDS ORDERED: AZITHROMYCIN 250 MG TABLET ONE (09:06)
== END 2020-07-12 09:15 | disposition home or self-care (01) ==
LOC: JER 00:59
PROC: 3E033NZ Introduction of Analgesics, Hypnotics, Sedatives into Peripheral Vein, Percutaneous Approach (ICD-10-PCS; principal; 2020-07-12)
PROC: 3E0233Z Introduction of Anti-inflammatory into Muscle, Percutaneous Approach (ICD-10-PCS; 2020-07-12)
PROC: 3E033GC Introduction of Other Therapeutic Substance into Peripheral Vein, Percutaneous Approach (ICD-10-PCS; 2020-07-12)
PROC: 3E02329 Introduction of Other Anti-infective into Muscle, Percutaneous Approach (ICD-10-PCS; 2020-07-12)
DX: N73.9 Female pelvic inflammatory disease, unspecified (principal); N12 Tubulo-interstitial nephritis, not specified as acute or chronic; N34.2 Other urethritis
CPT/HCPCS: 36415; 74176-TC; 80053; 81003; 84703; 85025; 87491; 87591; 96372; 96374; 96375; 99285-25; J0131

== ENCOUNTER 2020-10-13 15:44 | Emergency (ER) | payer OTHER ==
[2020-10-13 15:52] VITALS: BP 112/65; PULSE 87; BMI 30.2
[2020-10-13] MEDS ORDERED: SODIUM CHLORIDE 0.9% 500 ML INFUS.BAG IV ONE (16:29)
[2020-10-13] MEDS ORDERED: FAMOTIDINE 20 MG/50 ML IVPB 20 MG/50 ML MG IVPB ONE ×2 (16:30→17:05)
[2020-10-13] MEDS ORDERED: ONDANSETRON 4 MG/2 ML VIAL IVPUSH ONE (16:30)
[2020-10-13] MEDS ORDERED: ONDANSETRON 4 MG/2 ML VIAL ONE (17:05)
[2020-10-13 18:02] LABS: BASO % 0.2 % (0-2.0); EOS % 0.3 % (0-4.5); HEMATOCRIT 38.1 % (32.4-45.2); HEMOGLOBIN 12.3 GM/dL (10.7-15.3); LYMPH % 26.4 % (8-40); MCH 32.6 pg (25.7-33.7); MCHC 32.4 g/dl (32.0-36.0); MEAN CELL VOLUME 100.6 fl (80-96); MEAN PLT VOLUME 8.8 fl (7.5-11.1); MONO % 8.1 % (3.8-10.2); PLATELET COUNT 255 K/MM3 (134-434); RBC 3.78 M/mm3 (3.60-5.2); RDW 12.8 % (11.6-15.6); WHITE BLOOD COUNT 5.6 K/mm3 (4.0-10.0)
[2020-10-13 18:04] LABS: EPI CELLS >36 /uL (0-25.1); HYALINE CASTS 1 /uL (0-3.1); PH,URINE >= 9.0 (5.0-8.0); URINE APPEARANCE CLOUDY; URINE BACTERIA 3161 /uL (0-1359); URINE BILIRUBIN NEGATIVE (NEGATIVE); URINE COLOR YELLOW; URINE GLUCOSE (UA) NEGATIVE (NEGATIVE); URINE KETONE 1+ (NEGATIVE); URINE LEUK ESTERASE TRACE (NEGATIVE); URINE NITRITE NEGATIVE (NEGATIVE); URINE PROTEIN NEGATIVE (NEGATIVE); URINE RBC 5 /uL (0-23.9); URINE WBC 24 /uL (0-25.8)
[2020-10-13 18:23] LABS: CALCIUM 9.3 mg/dL (8.5-10.1)
[2020-10-13 18:27] LABS: CREATININE 0.5 mg/dL (0.55-1.3)
[2020-10-13 18:28] LABS: BILIRUBIN,TOTAL 0.5 mg/dL (0.2-1); TOT PROT 7.4 g/dl (6.4-8.2)
[2020-10-13] MEDS ORDERED: AZITHROMYCIN 500 MG TABLET PO ONE (18:43)
[2020-10-13] MEDS ORDERED: AZITHROMYCIN 500 MG TABLET ONE (19:48)
[2020-10-13] MEDS ORDERED: cefTRIAXone SODIUM 1 GM VIAL ONE (19:48)
== END 2020-10-13 20:28 | disposition home or self-care (01) ==
LOC: JER 15:44
PROC: 3E02329 Introduction of Other Anti-infective into Muscle, Percutaneous Approach (ICD-10-PCS; principal; 2020-10-13)
PROC: 3E033GC Introduction of Other Therapeutic Substance into Peripheral Vein, Percutaneous Approach (ICD-10-PCS; 2020-10-13)
PROC: 3E033GC Introduction of Other Therapeutic Substance into Peripheral Vein, Percutaneous Approach (ICD-10-PCS; 2020-10-13)
DX: N30.00 Acute cystitis without hematuria (principal); Z3A.01 Less than 8 weeks gestation of pregnancy
CPT/HCPCS: 36415; 76830-TC; 80053; 81003; 83605; 83690; 84702; 85025; 86850; 86900; 86901; 87086; 87491; 87591; 99284-25

== ENCOUNTER 2020-10-15 11:55 | Emergency (ER) | payer OTHER ==
[2020-10-15 12:23] VITALS: BP 116/60; PULSE 92; TEMP 97.9; BMI 30.2
[2020-10-15] MEDS ORDERED: LACTATED RINGERS SOLUTION 1000 ML INFUS.BAG IV ONE (13:16)
[2020-10-15] MEDS ORDERED: METOCLOPRAMIDE HCL INJECTION 10 MG/2 ML VIAL IVPB ONE (13:16)
[2020-10-15] MEDS ORDERED: METOCLOPRAMIDE HCL INJECTION 10 MG/2 ML VIAL ONE (13:27)
[2020-10-15 14:00] LABS: BASO % 0.2 % (0-2.0); EOS % 0.1 % (0-4.5); HEMATOCRIT 40.5 % (32.4-45.2); HEMOGLOBIN 13.4 GM/dL (10.7-15.3); LYMPH % 15.1 % (8-40); MCH 33.2 pg (25.7-33.7); MCHC 33.1 g/dl (32.0-36.0); MEAN CELL VOLUME 100.1 fl (80-96); MEAN PLT VOLUME 8.6 fl (7.5-11.1); MONO % 4.6 % (3.8-10.2); PLATELET COUNT 281 K/MM3 (134-434); RBC 4.05 M/mm3 (3.60-5.2); RDW 12.7 % (11.6-15.6); WHITE BLOOD COUNT 7.9 K/mm3 (4.0-10.0)
[2020-10-15 14:18] LABS: POTASSIUM 4.1 mmol/L (3.5-5.1)
[2020-10-15 14:20] LABS: CALCIUM 9.3 mg/dL (8.5-10.1)
[2020-10-15 14:21] LABS: ALBUMIN 4.5 g/dl (3.4-5.0); BLOOD UREA NITROGEN 8.1 mg/dL (7-18)
[2020-10-15 14:24] LABS: CREATININE 0.6 mg/dL (0.55-1.3)
[2020-10-15 14:25] LABS: BILIRUBIN,TOTAL 0.5 mg/dL (0.2-1)
[2020-10-15 14:26] LABS: TOT PROT 8.2 g/dl (6.4-8.2)
== END 2020-10-15 14:15 | disposition home or self-care (01) ==
LOC: JER 11:55
PROC: 3E033GC Introduction of Other Therapeutic Substance into Peripheral Vein, Percutaneous Approach (ICD-10-PCS; principal; 2020-10-15)
PROC: 3E033GC Introduction of Other Therapeutic Substance into Peripheral Vein, Percutaneous Approach (ICD-10-PCS; 2020-10-15)
DX: O21.8 Other vomiting complicating pregnancy (principal); Z3A.09 9 weeks gestation of pregnancy
CPT/HCPCS: 36415; 80053; 85025; 99284-25

== ENCOUNTER 2021-02-25 18:28 | Emergency (ER) | payer OTHER ==
[2021-02-25 18:42] VITALS: BP 116/71; PULSE 92; TEMP 98.7; BMI 30.2
[2021-02-25] MEDS ORDERED: AZITHROMYCIN 500 MG TABLET PO ONE (19:31)
[2021-02-25] MEDS ORDERED: AZITHROMYCIN 500 MG TABLET ONE (19:45)
[2021-02-25 20:24] LABS: EPI CELLS >36 /uL (0-25.1); HYALINE CASTS 12 /uL (0-3.1); PH,URINE 5.5 (5.0-8.0); URINE APPEARANCE CLOUDY; URINE BACTERIA 2422 /uL (0-1359); URINE BILIRUBIN NEGATIVE (NEGATIVE); URINE COLOR YELLOW; URINE GLUCOSE (UA) NEGATIVE (NEGATIVE); URINE KETONE TRACE (NEGATIVE); URINE LEUK ESTERASE 1+ (NEGATIVE); URINE NITRITE NEGATIVE (NEGATIVE); URINE PROTEIN TRACE (NEGATIVE); URINE RBC 12 /uL (0-23.9); URINE WBC 64 /uL (0-25.8)
[2021-02-25 20:26] LABS: HCG,QUALITATIVE URINE Negative
== END 2021-02-25 21:00 | disposition home or self-care (01) ==
LOC: JERFT 18:28
DX: N89.8 Other specified noninflammatory disorders of vagina (principal); N30.00 Acute cystitis without hematuria
CPT/HCPCS: 36415; 81003; 84703; 87077; 87086; 87491; 87591; 99284-25

== ENCOUNTER 2021-12-27 14:51 | Emergency (ER) | payer OTHER ==
[2021-12-27 14:58] VITALS: BP 116/72; PULSE 105; TEMP 97; BMI 29.0
[2021-12-27 17:27] LABS: PH,URINE >= 9.0 (5.0-8.0); URINE APPEARANCE CLEAR; URINE BILIRUBIN NEGATIVE (NEGATIVE); URINE COLOR YELLOW; URINE GLUCOSE (UA) NEGATIVE (NEGATIVE); URINE KETONE TRACE (NEGATIVE); URINE LEUK ESTERASE NEGATIVE (NEGATIVE); URINE NITRITE NEGATIVE (NEGATIVE); URINE PROTEIN TRACE (NEGATIVE)
[2021-12-27 17:32] LABS: HIV INTERPRETATION NEGATIVE (NEGATIVE)
== END 2021-12-27 19:31 | disposition home or self-care (01) ==
LOC: JERFT 14:51
DX: R39.9 Unspecified symptoms and signs involving the genitourinary system (principal); Z11.3 Encounter for screening for infections with a predominantly sexual mode of transmission
CPT/HCPCS: 36415; 81003; 86780; 87086; 87389; 87491; 87591; 99283-25

== ENCOUNTER 2023-03-26 12:03 | Emergency (ER) | payer OTHER ==
[2023-03-26 12:23] VITALS: BP 117/73; PULSE 112; RESP 16; TEMP 98.4; BMI 30.2
[2023-03-26] MEDS ORDERED: SODIUM CHLORIDE 0.9% 500 ML INFUS.BAG IV ONE (12:54)
[2023-03-26] MEDS ORDERED: ACETAMINOPHEN 1000 MG/100 ML BAG IVPB ONE (12:54)
[2023-03-26] MEDS ORDERED: ACETAMINOPHEN INJECTION 100 ML IVPB ONE (13:05)
[2023-03-26 13:33] LABS: BASO % 0.8 % (0-2.0); HEMATOCRIT 36.4 % (32.4-45.2); HEMOGLOBIN 12.3 GM/dL (10.7-15.3); LYMPH % 24.5 % (8-40); MCH 33.9 pg (25.7-33.7); MCHC 33.9 g/dl (32.0-36.0); MEAN PLT VOLUME 8.3 fl (7.5-11.1); MONO % 10.3 % (3.8-10.2); NEUT % 63.4 % (42.8-82.8); PLATELET COUNT 222 10^3/uL (134-434); RBC 3.65 M/mm3 (3.60-5.2); RDW 12.9 % (11.6-15.6); WHITE BLOOD COUNT 4.9 K/mm3 (4.0-10.0)
[2023-03-26 13:57] LABS: POTASSIUM 4.6 mmol/L (3.5-5.1)
[2023-03-26 13:58] LABS: BLOOD UREA NITROGEN 13.4 mg/dL (7-18); CALCIUM 8.8 mg/dL (8.5-10.1)
[2023-03-26 14:01] LABS: CREATININE 0.6 mg/dL (0.55-1.3)
[2023-03-26 14:21] LABS: EPI CELLS >36 /uL (0-25.1); HYALINE CASTS 1 /uL (0-3.1); PH,URINE 6.5 (5.0-8.0); URINE APPEARANCE CLOUDY; URINE BACTERIA 616 /uL (0-1359); URINE BILIRUBIN NEGATIVE (NEGATIVE); URINE COLOR YELLOW; URINE GLUCOSE (UA) NEGATIVE (NEGATIVE); URINE KETONE NEGATIVE (NEGATIVE); URINE LEUK ESTERASE 1+ (NEGATIVE); URINE NITRITE NEGATIVE (NEGATIVE); URINE PROTEIN NEGATIVE (NEGATIVE); URINE RBC 32 /uL (0-23.9); URINE UROBILINOGEN 0.2 mg/dL (0.2-1.0); URINE WBC 20 /uL (0-25.8)
[2023-03-26] MEDS ORDERED: CEFTRIAXONE 1 GM in DEXTROSE 5%-WATER - 100 ML IVPB ONE (14:32)
[2023-03-26 14:47] LABS: YEAST NO SEEN (NEGATIVE)
[2023-03-26] MEDS ORDERED: CEFTRIAXONE 1 GM/50 ML BAG ONE (15:01)
== END 2023-03-26 15:37 | disposition home or self-care (01) ==
LOC: JER 12:03
DX: R10.30 Lower abdominal pain, unspecified (principal); M54.50 Low back pain, unspecified; R35.0 Frequency of micturition; N30.00 Acute cystitis without hematuria
CPT/HCPCS: 36415; 80048; 81003; 84703; 85025; 87086; 99284-25

== ENCOUNTER 2024-07-09 21:23 | Emergency (ER) | payer OTHER ==
[2024-07-09 21:36] VITALS: BP 111/74; PULSE 107; RESP 18; TEMP 99; BMI 21.1
[2024-07-09 22:34] LABS: URINE APPEARANCE CLEAR; URINE BILIRUBIN NEGATIVE (NEGATIVE); URINE COLOR YELLOW; URINE GLUCOSE (UA) NEGATIVE (NEGATIVE); URINE KETONE NEGATIVE (NEGATIVE); URINE LEUK ESTERASE NEGATIVE (NEGATIVE); URINE NITRITE NEGATIVE (NEGATIVE); URINE PROTEIN NEGATIVE (NEGATIVE)
[2024-07-09 22:51] LABS: POTASSIUM 4.4 mmol/L (3.5-5.1)
[2024-07-09 22:53] LABS: ALBUMIN 3.9 g/dl (3.4-5.0); BLOOD UREA NITROGEN 8.2 mg/dL (7-18); CALCIUM 8.7 mg/dL (8.5-10.1)
[2024-07-09 22:57] LABS: CREATININE 0.6 mg/dL (0.55-1.3)
[2024-07-09 22:58] LABS: BILIRUBIN,TOTAL 0.3 mg/dL (0.2-1)
[2024-07-09 23:48] LABS: HIV INTERPRETATION NEGATIVE (NEGATIVE)
[2024-07-10 00:15] LABS: BASO % 0.5 % (0-2.0); EOS % 0.8 % (0-4.5); HEMATOCRIT 36.2 % (32.4-45.2); LYMPH % 33.4 % (8-40); MCH 33.6 pg (25.7-33.7); MEAN CELL VOLUME 101.7 fl (80-96); MEAN PLT VOLUME 8.1 fl (7.5-11.1); MONO % 10.2 % (3.8-10.2); NEUT % 55.1 % (42.8-82.8); PLATELET COUNT 249 10^3/uL (134-434); RBC 3.56 M/mm3 (3.60-5.2); WHITE BLOOD COUNT 6.3 K/mm3 (4.0-10.0)
== END 2024-07-10 01:15 | disposition home or self-care (01) ==
LOC: JER 21:23
DX: O20.9 Hemorrhage in early pregnancy, unspecified (principal); O26.891 Other specified pregnancy related conditions, first trimester; R35.0 Frequency of micturition; Z3A.01 Less than 8 weeks gestation of pregnancy
CPT/HCPCS: 36415; 76817-TC; 80053; 81003; 84702; 84703; 85025; 86803; 87086; 87389; 87491; 87591; 99284-25

== ENCOUNTER 2024-07-25 13:29 | Emergency (ER) | payer OTHER ==
[2024-07-25 13:37] VITALS: BP 116/53; PULSE 79; RESP 18; TEMP 98.5; BMI 30.2
[2024-07-25] MEDS ORDERED: ACETAMINOPHEN 325 MG TABLET (FP) ONE (14:21)
[2024-07-25] MEDS: ACETAMINOPHEN 325 MG TABLET (FP) PO ONE (14:57)
[2024-07-25] MEDS: SODIUM CHLORIDE 1,000 ML IV ONE (14:59)
[2024-07-25 15:07] LABS: URINE APPEARANCE CLOUDY; URINE BILIRUBIN NEGATIVE (NEGATIVE); URINE COLOR YELLOW; URINE GLUCOSE (UA) NEGATIVE (NEGATIVE); URINE KETONE NEGATIVE (NEGATIVE); URINE LEUK ESTERASE NEGATIVE (NEGATIVE); URINE NITRITE NEGATIVE (NEGATIVE); URINE PROTEIN NEGATIVE (NEGATIVE); URINE UROBILINOGEN 0.2 mg/dL (0.2-1.0)
[2024-07-25 15:10] LABS: BASO % 0.2 % (0-2.0); EOS % 0.2 % (0-4.5); HEMATOCRIT 34.1 % (32.4-45.2); HEMOGLOBIN 11.7 GM/dL (10.7-15.3); LYMPH % 16.3 % (8-40); MCH 34.8 pg (25.7-33.7); MCHC 34.2 g/dl (32.0-36.0); MEAN CELL VOLUME 101.8 fl (80-96); MEAN PLT VOLUME 8.5 fl (7.5-11.1); MONO % 5.5 % (3.8-10.2); NEUT % 77.8 % (42.8-82.8); PLATELET COUNT 249 10^3/uL (134-434); RBC 3.35 M/mm3 (3.60-5.2); RDW 13.1 % (11.6-15.6); WHITE BLOOD COUNT 8.7 K/mm3 (4.0-10.0)
[2024-07-25 15:25] LABS: INR 0.88 (0.83-1.09); POTASSIUM 4.2 mmol/L (3.5-5.1)
[2024-07-25 15:27] LABS: CALCIUM 8.6 mg/dL (8.5-10.1)
[2024-07-25 15:28] LABS: ACTIVATED PTT 27.2 SECONDS (25.2-36.5); ALBUMIN 3.3 g/dl (3.4-5.0); BLOOD UREA NITROGEN 5.2 mg/dL (7-18)
[2024-07-25 15:30] LABS: CREATININE 0.6 mg/dL (0.55-1.3)
[2024-07-25 15:32] LABS: BILIRUBIN,TOTAL 0.2 mg/dL (0.2-1); TOT PROT 6.3 g/dl (6.4-8.2)
[2024-07-25 17:55] LABS: HIV INTERPRETATION NEGATIVE (NEGATIVE)
== END 2024-07-25 18:20 | disposition home or self-care (01) ==
LOC: JER 13:29
PROC: 3E0337Z Introduction of Electrolytic and Water Balance Substance into Peripheral Vein, Percutaneous Approach (ICD-10-PCS; principal; 2024-07-25)
DX: O26.891 Other specified pregnancy related conditions, first trimester (principal); R10.11 Right upper quadrant pain; R10.31 Right lower quadrant pain; O20.8 Other hemorrhage in early pregnancy; Z3A.01 Less than 8 weeks gestation of pregnancy; O34.11 Maternal care for benign tumor of corpus uteri, first trimester; N83.201 Unspecified ovarian cyst, right side
CPT/HCPCS: 36415; 76775-TC; 76817-TC; 80053; 81003; 84702; 85025; 85610; 85730; 86803; 87389; 99284-25

== ENCOUNTER 2024-08-06 11:55 | Observation (INO) | payer OTHER ==
[2024-08-06 12:09] VITALS: TEMP 98.8; BMI 30.2
[2024-08-06] MEDS ORDERED: ONDANSETRON 4 MG/2 ML VIAL ONE (14:08)
[2024-08-06] MEDS ORDERED: ACETAMINOPHEN 500 MG TABLET (FP) ONE (14:08)
[2024-08-06] MEDS: ACETAMINOPHEN 500 MG TABLET (FP) PO ONE (14:23)
[2024-08-06 14:24] LABS: PH,URINE 7.5 (5.0-8.0); URINE APPEARANCE CLEAR; URINE BILIRUBIN NEGATIVE (NEGATIVE); URINE COLOR YELLOW; URINE GLUCOSE (UA) NEGATIVE (NEGATIVE); URINE KETONE NEGATIVE (NEGATIVE); URINE LEUK ESTERASE NEGATIVE (NEGATIVE); URINE NITRITE NEGATIVE (NEGATIVE); URINE PROTEIN NEGATIVE (NEGATIVE); URINE UROBILINOGEN 0.2 mg/dL (0.2-1.0)
[2024-08-06] MEDS: ONDANSETRON 4 MG/2 ML VIAL IVPUSH ONE ×2 (14:24→20:33)
[2024-08-06 14:28] LABS: BASO % 0.4 % (0-2.0); EOS % 0.2 % (0-4.5); HEMATOCRIT 35.8 % (32.4-45.2); HEMOGLOBIN 11.9 GM/dL (10.7-15.3); LYMPH % 24.8 % (8-40); MCH 34.2 pg (25.7-33.7); MCHC 33.2 g/dl (32.0-36.0); MEAN CELL VOLUME 103.1 fl (80-96); MEAN PLT VOLUME 8.1 fl (7.5-11.1); MONO % 7.5 % (3.8-10.2); NEUT % 67.1 % (42.8-82.8); PLATELET COUNT 273 10^3/uL (134-434); RBC 3.47 M/mm3 (3.60-5.2); WHITE BLOOD COUNT 7.2 K/mm3 (4.0-10.0)
[2024-08-06 15:10] LABS: POTASSIUM 4.3 mmol/L (3.5-5.1)
[2024-08-06 15:15] LABS: BLOOD UREA NITROGEN 4.1 mg/dL (7-18); CALCIUM 8.9 mg/dL (8.5-10.1)
[2024-08-06 15:17] LABS: ALBUMIN 3.4 g/dl (3.4-5.0)
[2024-08-06 15:19] LABS: CREATININE 0.5 mg/dL (0.55-1.3)
[2024-08-06] MEDS ORDERED: MORPHINE SULFATE 2 MG/ML SYRINGE ONE ×2 (15:19→18:05)
[2024-08-06 15:20] LABS: BILIRUBIN,TOTAL 0.3 mg/dL (0.2-1)
[2024-08-06 15:21] LABS: TOT PROT 6.8 g/dl (6.4-8.2)
[2024-08-06] MEDS: morphine CARPU-JECT 2 MG/1 ML DISP.SYRIN IVPUSH ONE ×2 (15:34→18:46)
[2024-08-06] MEDS: SODIUM CHLORIDE 0.9% 500 ML INFUS.BAG IV ONE (15:34)
[2024-08-06] MEDS ORDERED: ONDANSETRON *ODT* 4 MG TABLET ONE (20:00)
[2024-08-06] MEDS: ONDANSETRON *ODT* 4 MG TABLET SL ONE (20:01)
[2024-08-06] MEDS ORDERED: ONDANSETRON 4 MG/2 ML VIAL IVPUSH PRN (22:27)
[2024-08-07] MEDS: ACETAMINOPHEN 1000 MG/100 ML BAG IVPB ONE (04:18)
[2024-08-07 04:36] VITALS: BP 106/60; PULSE 64; RESP 18
[2024-08-07] MEDS ORDERED: PYRIDOXINE HCL (B-6) 50 MG TABLET (FP) PO PRN (05:30)
[2024-08-07] MEDS ORDERED: HEPARIN NA (PORCINE) 5,000 UNITS/ML 1ML VIAL SQ SCH (06:00)
[2024-08-07 07:36] LABS: HEMATOCRIT 33.5 % (32.4-45.2); HEMOGLOBIN 11.1 GM/dL (10.7-15.3); MCH 34.4 pg (25.7-33.7); MCHC 33.2 g/dl (32.0-36.0); MEAN CELL VOLUME 103.6 fl (80-96); MEAN PLT VOLUME 8.2 fl (7.5-11.1); PLATELET COUNT 219 10^3/uL (134-434); RBC 3.23 M/mm3 (3.60-5.2); RDW 12.9 % (11.6-15.6); WHITE BLOOD COUNT 6.4 K/mm3 (4.0-10.0)
[2024-08-07 07:57] LABS: POTASSIUM 4.1 mmol/L (3.5-5.1)
[2024-08-07 07:59] LABS: CALCIUM 8.4 mg/dL (8.5-10.1)
[2024-08-07 08:00] LABS: BLOOD UREA NITROGEN 3.7 mg/dL (7-18); MAGNESIUM 1.8 mg/dL (1.8-2.4)
[2024-08-07 08:03] LABS: CREATININE 0.4 mg/dL (0.55-1.3); PHOSPHOROUS 3.7 mg/dL (2.5-4.9)
[2024-08-07 08:05] LABS: BILIRUBIN,TOTAL 0.6 mg/dL (0.2-1)
[2024-08-07] MEDS ORDERED: ACETAMINOPHEN INJECTION 100 ML ONE (09:35)
[2024-08-07] MEDS: ACETAMINOPHEN 1000 MG/100 ML BAG IVPB PRN (09:44)
== END 2024-08-07 10:00 | disposition left against medical advice (07) ==
LOC: JER 11:55 → JERBED 21:13
PROVIDERS: ADMIT Student in an Organized Health Care Education/Training Program; ATTEND Internal Medicine
PROC: 3E033NZ Introduction of Analgesics, Hypnotics, Sedatives into Peripheral Vein, Percutaneous Approach (ICD-10-PCS; principal; 2024-08-06)
PROC: 3E0333Z Introduction of Anti-inflammatory into Peripheral Vein, Percutaneous Approach (ICD-10-PCS; 2024-08-06)
PROC: 3E0337Z Introduction of Electrolytic and Water Balance Substance into Peripheral Vein, Percutaneous Approach (ICD-10-PCS; 2024-08-06)
DX: O26.891 Other specified pregnancy related conditions, first trimester (principal); Z3A.10 10 weeks gestation of pregnancy; R10.9 Unspecified abdominal pain; Z53.29 Procedure and treatment not carried out because of patient's decision for other reasons
CPT/HCPCS: 36415; 74181-TC; 76775-TC; 76801-TC; 80053; 81003; 83735; 84100; 84702; 85025; 85027; 87086; 93005; 93010; 96374; 96375; 96376; 99285-25; G0378; J0131; Q0162